=== PATIENT | male | born 1935 | race Caucasian/White ===

== ENCOUNTER → 2018-01-05 08:53 | Outpatient (CLI) | payer MEDICARE, OTHER, SELFPAY ==
[2018-01-05 09:16] LABS: Add Manual Diff / Slide Review NO; Basophils Percent Auto 0.7 % (0-2); Hematocrit 31.6 % (41-53); Lymphocytes Percent Auto 22.8 % (25-40); Mean Corpuscular HGB Conc 31.8 % (30-36); Mean Corpuscular Hemoglobin 24.9 PG (26-34); Mean Corpuscular Volume 78.2 fL (80-100); Monocytes Percent Auto 8.9 % (3-14); Neutrophils Absolute Auto 3200 /uL (3000-5900); Neutrophils Percent Auto 61.6 % (50-75); Platelet Count 258 X10^3/uL (150-400); Red Blood Cell Count 4.04 X10^6/uL (4.5-5.9); Red Cell Distribution Width 19.7 % (11.6-14.8); White Blood Cell Count 5.1 X10^3/uL (4.5-11.0)
== END ==
PROVIDERS: PCP Family Medicine; Visit Provider Family Medicine
DX: D64.9 Anemia, unspecified (principal)
CPT/HCPCS: 36415; 85025

== ENCOUNTER → 2018-01-16 08:02 | Outpatient (CLI) | payer MEDICARE, OTHER, SELFPAY ==
--- NOTE | 2018-01-16 | DI.US.S_ITS ---
PROCEDURE: US ARTERIAL DUPLEX LE RT INDICATIONS: DECREASED CIRCULATION/COLD RIGHT LOWER EXTREMITY TECHNIQUE: Color and pulse Doppler interrogation was performed of the right lower extremity arterial system, with image documentation. COMPARISON: None. FINDINGS: Common femoral artery: 147 cm/sec, with triphasic flow. Deep femoral artery: 75 cm/sec, with biphasic flow. Proximal superficial femoral artery: 109 cm/sec, with biphasic flow. Mid superficial femoral artery: 154 cm/sec, with biphasic flow. Distal superficial femoral artery: 160 cm/sec, with biphasic flow. Popliteal artery: 99 cm/sec, with biphasic flow. Posterior tibial artery: 75 cm/sec, with biphasic flow. Anterior tibial artery/dorsalis pedis: 56 cm/sec, with biphasic flow. Hess-scale imaging description: Scattered atheromatous plaque is present in the right lower extremity arteries. No hemodynamically significant stenosis. IMPRESSION: No hemodynamically significant stenosis of the right lower extremity arteries. Dictated by: Carmen Burns M.D. on 01/16/2018 at 11:14 Approved by: Carmen Burns M.D. on 01/16/2018 at 11:16
== END ==
PROVIDERS: Family Provider Family Medicine; PCP Family Medicine; Visit Provider Family Medicine
DX: I99.9 Unspecified disorder of circulatory system (principal)
CPT/HCPCS: 93926

== ENCOUNTER 2018-05-24 09:25 | Day surgery (SDC) | payer MEDICARE, OTHER, SELFPAY ==
--- NOTE | 2018-05-24 07:30 | PM.PREOP ---
Pre-operative Note Interval Note Pre-op Check: Yes History & Physical Reviewed by Physician Changes: No
[2018-05-24] MEDS: PROPARACAINE 0.5% OPHTH SOL 2 DROPS EYE-OP (09:50)
[2018-05-24 09:52] VITALS: BP 175/93; PULSE 60; RESP 16; TEMP 36.6; O2SAT 97; BMI 29.4
[2018-05-24] MEDS: CATARACT EYE COMPOUND (10 DROPS/SYRINGE) 3 DROPS EYE-OP (09:55)
--- NOTE | 2018-05-24 10:39 | SUR.OPER ---
Supine on eye stretcher, head on extension cradle secured with tape. Arms tucked at sides with blanket. Pillow under knees.
[2018-05-24] MEDS: PHENYLEPHRINE/LIDOCAINE VIAL (OR) 0.2 ML EYE-OP (10:41)
[2018-05-24] MEDS: MOXIFLOXACIN OPHTH DROPS 3 ML BOTTLE 2 DROPS INJ (10:42)
[2018-05-24] MEDS: TRIAMCINOLONE 50 MG/5 ML VIAL INJ (10:42)
[2018-05-24] MEDS: CHONDROIDTIN/SOD HYALURONATE 1.05 ML SYRINGE INTRAOCULA (10:43)
[2018-05-24] MEDS: BALANCED SALT IRRIG SOLN NO.2 15 ML IRRIG.SOLN IRR (10:43)
[2018-05-24] MEDS: CARBACHOL 1.5 ML VIAL INJ (10:44)
[2018-05-24] MEDS: HYALURONATE SODIUM 10 MG/ML SYRINGE INJ (10:44)
[2018-05-24] MEDS: OFLOXACIN 0.3% OPHTH 5 ML 2 DROPS EYE-LEFT (10:45)
[2018-05-24] MEDS: TRYPAN BLUE 0.5 ML SYRINGE INJ (10:45)
[2018-05-24] MEDS: ERYTHROMYCIN OPHTH 1 GM OINT 1 APPLIC EYE-LEFT (10:47)
[2018-05-24] MEDS: LIDOCAINE 1% W/EPI INJ 20 ML INJ (10:48)
[2018-05-24] MEDS: LIDOCAINE 2% 4 ML, BUPIVACAINE 0.5% (PF) 4 ML, HYALURONIDASE 150 UNIT INJ (10:49)
[2018-05-24] MEDS: BALANCED SALT IRRIG SOLN NO.2 500 ML, EPINEPHrine 1 MG IRR (10:51)
[2018-05-24 11:15] VITALS: BP 175/60; PULSE 53; RESP 16; TEMP 36.3; O2SAT 97
--- NOTE | 2018-05-24 16:06 | P.OP_ITS ---
Operative Date/Time/Diagnoses Date of procedure: 05/24/18 Time of procedure: 10:45 Procedure & Clinicians Procedure: Date of service: May 24, 2018 Preoperative diagnoses:1. 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 Floppy iris syndrome with tamsulosin use.3. Aortic heart valve on anticoagulation with INR 1.4 today. 4. On Lovenox bridging5. Diabetes without retinopathy. 6. Macular degeneration. Postoperative diagnoses:1. Cataract complex surgery with use of capsular dye and Malyugin ring. Procedure: Phacoemulsification with posterior chamber intraocular lens implant.Surgeon: NATE Magdalenoomplications: None. Specimen: NoneImplant: ZCBOO +21.0Blood loss: None .Anesthesia: Retrobulbar with monitored standby.Anesthesiologist: Adam Mares M.D.Description of procedure: Patient is a 83 year old male with decreased vision due to cataract which is affecting activities of daily living. He wants surgery to improve vision.He has taken to the operating room and given IV sedation. A retrobulbar block insert consisting of 6 cc of 2% xylocaine without epinephrine mixed half and half with 0.5% Marcaine with 1 cc of hyaluronidase added is placed between the medial and lateral 1/3 of the inferior orbital rim. Lid akinesia is obtain with 1% xylocaine with epinephrine infiltrated along the lid margin. The eye is manually massaged for 30 sec, prepped using Betadine solution, and draped in the usual sterile fashion.Temporal approach was made, a 1 mm side-port incision was made at the 12 oclock meridian. Phenylephrine 1.5% mixed with 1% xylocaine 0.2 cc was placed into the anterior chamber. An air bubble was placed and Visudyne dye was used to capsular visibility. Viscoat followed by Musa was then placed. A 2.6 mm clear incision with a 2.6 mm blade was placed at the 3 oclock meridian. A 7.0 mm Malyugin ring was inspected and placed into the anterior chamber and then sequentially hooked under the iris. This allowed contain min of floppy iris as well as improve visibility. A 360 degree capsulorrhexis style capsulotomy was then performed with a cystitome needle on a Healon. Hydrodelineation and hydrodissection were performed. The phacoemulsification unit is introduced, and sculpting notice used to groove the central lens. It is then removed in chopping mode. Epi nucleus is removed with epinuclear mode and irrigation aspiration was used to remove the peripheral cortex. The posterior capsule is polished. The intraocular lens is selected, inspected, power confirmed, and placed in the posterior chamber. The Malyugin ring was then disinserted and removed from the eye in its original folder. The pupil was constricted. The wound was stromally hydrated and tested for leaks, there was none and was left sutureless. Vigamox 0.1 cc was placed into the anterior chamber. Kenalog 0.2 cc was placed in the superior subconjunctival space. A drop of antibiotic and was placed and the eye was patched and shielded. The patient was stable and returned to the recovery room in excellent condition.Dictated by: Domenico Magdaleno to: [facility] Same procedure as scheduled: Yes
== END 2018-05-24 11:30 | disposition home or self-care (01) ==
LOC: OR 09:26
PROVIDERS: Family Provider Family Medicine; PCP Family Medicine; Visit Provider Ophthalmology
PROC: (CPT 66982; principal; 2018-05-24 10:45)
DX: H25.12 Age-related nuclear cataract, left eye (principal); H21.81 Floppy iris syndrome; H26.9 Unspecified cataract; E11.9 Type 2 diabetes mellitus without complications; H35.30 Unspecified macular degeneration; Z79.01 Long term (current) use of anticoagulants
CPT/HCPCS: 66982; J0171; J2704; J3301; J3470

== ENCOUNTER 2018-06-07 07:33 | Day surgery (SDC) | payer MEDICARE, OTHER, SELFPAY ==
--- NOTE | 2018-06-02 16:55 | PM.PREOP ---
Pre-operative Note Interval Note Pre-op Check: Yes History & Physical Reviewed by Physician Changes: No
[2018-06-07 07:56] VITALS: BP 182/62; PULSE 57; RESP 16; TEMP 36.1; O2SAT 98; BMI 29.4
[2018-06-07] MEDS: PROPARACAINE 0.5% OPHTH SOL 2 DROPS EYE-OP (08:05)
[2018-06-07] MEDS: CATARACT EYE COMPOUND (10 DROPS/SYRINGE) 3 DROPS EYE-OP (08:08)
[2018-06-07] MEDS: ERYTHROMYCIN OPHTH 1 GM OINT 1 APPLIC EYE-RIGHT (09:05)
[2018-06-07] MEDS: MOXIFLOXACIN OPHTH DROPS 3 ML BOTTLE 2 DROPS INJ (09:06)
[2018-06-07] MEDS: CHONDROIDTIN/SOD HYALURONATE 1.05 ML SYRINGE INTRAOCULA (09:07)
[2018-06-07] MEDS: BALANCED SALT IRRIG SOLN NO.2 15 ML IRRIG.SOLN IRR (09:07)
[2018-06-07] MEDS: HYALURONATE SODIUM 10 MG/ML SYRINGE INJ (09:08)
[2018-06-07] MEDS: BALANCED SALT IRRIG SOLN NO.2 500 ML, EPINEPHrine 1 MG IRR (09:09)
[2018-06-07] MEDS: PHENYLEPHRINE/LIDOCAINE VIAL (OR) 0.2 ML EYE-OP (09:09)
[2018-06-07] MEDS: CARBACHOL 1.5 ML VIAL INJ ×2 (09:10→10:06)
[2018-06-07] MEDS: OFLOXACIN 0.3% OPHTH 5 ML 2 DROPS EYE-RIGHT (09:11)
[2018-06-07] MEDS: TRIAMCINOLONE 50 MG/5 ML VIAL INJ (09:13)
[2018-06-07] MEDS: LIDOCAINE 1% W/EPI INJ 20 ML INJ (09:21)
[2018-06-07] MEDS: LIDOCAINE 2% 4 ML, BUPIVACAINE 0.5% (PF) 4 ML, HYALURONIDASE 150 UNIT INJ (09:24)
[2018-06-07] MEDS: TRYPAN BLUE 0.5 ML SYRINGE INJ (09:26)
[2018-06-07 09:40] VITALS: BP 179/63; PULSE 45; RESP 20; TEMP 36.6; O2SAT 96
--- NOTE | 2018-06-07 11:55 | PM.OP.1 ---
Operative Date/Time/Diagnoses Date of procedure: 06/07/18 Time of procedure: 09:30 Procedure & Clinicians Procedure: Date of service: June 07, 2018 Preoperative diagnoses: 1. Complex advanced nuclear sclerotic and cortical Cataract with need for capsular dye and Malyugin ring 2. Floppy iris syndrome. 3. Aortic valve on anticoagulation. Postoperative diagnoses: 1. Cataract complex removed with capsular dye and Malyugin ring. Procedure: Phacoemulsification with posterior chamber intraocular lens implant Surgeon: Belen Devine MD Complications:none Specimen: None Implant:ZCBOO+21.0 Blood loss: None Anesthesia: Retrobulbar with monitored standby Anesthesiologist: Cole López M.D. Description of procedure: Patient is an 83 year old male with decreased vision due to cataract which is affecting activities of daily living. He wants surgery to improve vision. He has an aortic valve and his INR before surgery is 1.2. He is also using bridging Lovenox. He has taken to the operating room and given IV sedation. A retrobulbar block insert consisting of 6 cc of 2% xylocaine without epinephrine mixed half and half with 0.5% Marcaine with 1 cc of hyaluronidase added is placed between the medial and lateral 1/3 of the inferior orbital rim. Lid akinesia is obtain with 1% xylocaine with epinephrine infiltrated along the lid margin. The eye is manually massaged for 30 sec, prepped using Betadine solution, and draped in the usual sterile fashion. Temporal approach was made, a 1 mm side-port incision was made at the 7:30 position. Phenylephrine 1.5% mixed with 1% xylocaine 0.2 cc was placed into the anterior chamber. An air bubble was placed followed by Visudyne capsular dye.Viscoat followed by Healon was then placed. A 2.6 mm clear incision with a 2.6 mm blade was placed at the 170 degree meridian. A 7.0 mm Malygin ring was inspected and placed into the anterior chamber. It was then sequentially hooked on all 4 quadrants of the iris. There was a narrow anterior chamber. A 360 degree capsulorrhexis style capsulotomy was then performed with a cystitome needle on a Healon. Hydrodelineation and hydrodissection were performed. The phacoemulsification unit is introduced, and sculpting notice used to groove the central lens. It is then removed in chopping mode. Epi nucleus is removed with epinuclear mode and irrigation aspiration was used to remove the peripheral cortex. The posterior capsule is polished. The intraocular lens is selected, inspected, power confirmed, and placed in the posterior chamber. The Malygin ring was then disinserted and removed from the eye using extra viscoelastic. The pupil was constricted. The wound was stromally hydrated and tested for leaks, there was none and was left sutureless. Vigamox 0.1 cc was placed into the anterior chamber. Kenalog 0.2 cc was placed in the superior subconjunctival space. A drop of antibiotic and was placed and the eye was patched and shielded. The patient was stable and returned to the recovery room in excellent condition. Dictated by: Belen Devine MD Copy to: [facility] Same procedure as scheduled: Yes
== END 2018-06-07 09:55 | disposition home or self-care (01) ==
LOC: OR 07:34
PROVIDERS: PCP Family Medicine; Visit Provider Ophthalmology
PROC: (CPT 66982; principal; 2018-06-07 08:45)
DX: H25.11 Age-related nuclear cataract, right eye (principal); H21.81 Floppy iris syndrome; Z79.01 Long term (current) use of anticoagulants
CPT/HCPCS: 66982; J0171; J2250; J2704; J3010; J3301; J3470

== ENCOUNTER → 2018-08-01 10:10 | Outpatient (CLI) | payer MEDICARE, OTHER, SELFPAY ==
[2018-08-01 10:37] LABS: Add Manual Diff / Slide Review NO; Basophils Percent Auto 0.6 % (0-2); Eosinophils Percent Auto 5.2 % (2-4); Hematocrit 44.5 % (41-53); Hemoglobin 15.1 g/dL (13.5-17.5); Lymphocytes Percent Auto 21.9 % (25-40); Mean Corpuscular HGB Conc 33.8 % (30-36); Mean Corpuscular Hemoglobin 32.5 PG (26-34); Monocytes Percent Auto 6.5 % (3-14); Neutrophils Absolute Auto 6000 /uL (1500-7000); Neutrophils Percent Auto 65.8 % (50-75); Platelet Count 253 X10^3/uL (150-400); Red Blood Cell Count 4.64 X10^6/uL (4.5-5.9); White Blood Cell Count 9.1 X10^3/uL (4.5-11.0)
== END ==
PROVIDERS: PCP Family Medicine; Visit Provider Family Medicine
DX: D64.9 Anemia, unspecified (principal)
CPT/HCPCS: 36415; 85025

== ENCOUNTER → 2019-02-06 06:43 | Outpatient (CLI) | payer MEDICARE, OTHER, SELFPAY ==
--- NOTE | 2019-02-06 | DI.MRI.S_ITS ---
PROCEDURE: MR LUMBAR SPINE WO/W CON INDICATIONS: LOW BACK PAIN TECHNIQUE: Noncontrast sagittal T1 spin echo and T2 fast spin echo, sagittal STIR, axial T1 and T2 fast spin echo through the lumbar spine. In cases with scoliosis, additional coronal T2 fast spin echo may be performed. After the administration of contrast, sagittal and axial T1 spin echo with fat saturation through the lumbar spine. COMPARISON: [facility], RG, XR L-SPINE OUTSIDE FILMS, 04/11/2007, 12:37. [facility], RG, XR CXR 2 VIEW, 02/06/2002, 10:37. [facility], RG, XR ABDOMEN ACUTE SERIES, 08/15/2003, 10:56. [facility], RG, XR CXR 2 VIEW, 05/18/2003, 10:36. [facility], CR, CHEST 2 VIEW, 06/09/2011, 9:52. [facility], CR, CHEST 2 VIEW, 07/21/2017, 12:03. [facility], CT, IVP (ABD & PEL WWO CONTRAST), 01/03/2017, 11:15. [facility], MR, LUMBAR SPINE W/O CONTRAST, 05/03/2007, 14:29. [facility], CR, L-SPINE MINIMUM 4 VIEWS, 07/11/2007, 0:00. [facility], MR, L-SPINE W&WO CONTRAST, 04/17/2013, 7:15. FINDINGS: Image quality: Excellent. Transitional anatomy present. The numbering nomenclature used the previous MRI lumbar spine reports is used in this report. There are vestigial ribs at L1. Alignment and curvature: There is moderate S-shaped scoliosis. Marrow: Degenerative endplate signal changes throughout the lumbar spine. No acute vertebral body compression fractures. There is discectomy and posterior fusion at L3-L4. Metallic artifact partially obscure adjacent structures some sequences. No suspicious marrow enhancement. Spinal cord: Conus medullaris terminates at the L1-L2 level. Visualized spinal cord demonstrates normal signal, without suspicious enhancement. Paraspinous soft tissues: No paravertebral masses or abnormal enhancement. A 5 cm left renal cyst is noted. L1-L2: Xkwt-oh-affyicec loss of disc height and disc desiccation. There is diffuse posterior disc bulge. Mild bilateral facet arthropathy and hypertrophy of ligamentum flavum. The central canal is patent. Moderate left and mild right foraminal stenosis. No definitive nerve root impingement. There is progression of disc and facet joint degeneration since the last exam. L2-L3: Moderate disc loss of height and disc desiccation. There is diffuse posterior disc bulge and disc osteophyte complex. Mild bilateral facet arthropathy and hypertrophy of ligamentum flavum. The central canal is moderately narrowed. Severe left and moderate right foraminal stenosis. Possible left definitive nerve root impingement. There is progression of disc and facet joint degeneration since the last exam. L3-L4: Surgically fused. The central canal is patent. Moderate left foraminal stenosis secondary to a left lateral osteophyte. No right foraminal stenosis. Possible left definitive nerve root impingement. L4-L5: Mild loss of disc height and disc desiccation. There is diffuse posterior disc bulge and disc osteophyte complex. Mild bilateral facet arthropathy. The central canal is patent. Mild to moderate bilateral foraminal stenosis. No definitive nerve root impingement. There is progression of disc and facet joint degeneration since the last exam. L5-S1: Preserved disc height and disc desiccation. There is diffuse posterior disc bulge and right posterior lateral disc osteophyte complex. Mild bilateral facet arthropathy. The central canal is patent. Moderate right and mild left foraminal stenosis. Possible right definitive nerve root impingement. There is progression of disc and facet joint degeneration since the last exam. IMPRESSION: 1. Possible transitional anatomy. Please confirm vertebral levels on radiographs prior to surgery or interventional procedures. 2. Multilevel degenerative and postsurgical changes in the lumbar spine as described. 3. Mild central canal stenosis L2-L3. 3. Multilevel foraminal stenosis as described, severe at L2-L3 on the left and moderate at L2-L3 on the right and L5-S1 on the right. Dictated by: Norm Rendon M.D. on 02/06/2019 at 11:07 Approved by: Norm Rendon M.D. on 02/06/2019 at 17:56
== END ==
PROVIDERS: PCP Family Medicine; Visit Provider Family Medicine
DX: M47.816 Spondylosis without myelopathy or radiculopathy, lumbar region (principal); M47.817 Spondylosis without myelopathy or radiculopathy, lumbosacral region; M48.061 Spinal stenosis, lumbar region without neurogenic claudication; Z98.1 Arthrodesis status; M54.5 Low back pain
CPT/HCPCS: 72158; A9579

== ENCOUNTER → 2019-02-14 14:34 | Outpatient (CLI) | payer MEDICARE, OTHER, SELFPAY ==
--- NOTE | 2019-02-14 14:36 | DI.RAD.S_ITS ---
PROCEDURE: XR LUMBAR SPINE 2-3V INDICATIONS: lumbar pain with right L5 radiculopathy TECHNIQUE: 3 views of the lumbar spine were acquired. COMPARISON: [facility], , L-SPINE MINIMUM 4 VIEWS, 07/11/2007, 0:00. FINDINGS: Bones: 5 [id number] vertebrae are present. There is dextroscoliotic bony alignment. Prior L 2-L3 transverse pedicle screw and vertical fixation natalie fixation has been performed No vertebral body compression fractures. No suspicious bony lesions. Soft tissues: Overlying bowel gas pattern is normal. No suspicious soft tissue calcifications. IMPRESSION: The degenerative disc disease and facet osteoarthritis pattern has progressed from 2006, but convex rightward scoliosis centered at L2 appears stable over time no fracture is found. Interval L2-L3 transverse pedicle screw placement and vertical fixation natalie placement bilaterally has been performed. The degree of degeneration present certainly would predispose to spinal and foraminal stenosis and focal nerve root impingement. Dictated by: Ashkan Schreiber M.D. on 02/14/2019 at 15:31 Approved by: Ashkan Schreiber M.D. on 02/14/2019 at 15:34
== END ==
PROVIDERS: PCP Family Medicine; Visit Provider Physical Medicine & Rehabilitation
DX: M47.27 Other spondylosis with radiculopathy, lumbosacral region (principal); M51.16 Intervertebral disc disorders with radiculopathy, lumbar region; M41.86 Other forms of scoliosis, lumbar region
CPT/HCPCS: 72100; 99214

== ENCOUNTER 2019-03-01 06:50 | Outpatient (CLI) | payer MEDICARE, OTHER, SELFPAY ==
[2019-03-01] VITALS (9 sets, daily range): BP systolic 121–155; BP diastolic 50–59; PULSE 52–63; RESP 16–18; TEMP 36.3; O2SAT 96–99
--- NOTE | 2019-03-01 06:52 | DI.RAD.S_ITS ---
PROCEDURE: PAIN L/S TRANSFORAMINAL INJECT INDICATIONS: RADICULOPATHY FINDINGS: Fluoroscopic spot filming was performed to verify placement of spinal needles at the L4-L5 level(s), as labeled on the films. Appropriate location(s) of the needle tip(s) was confirmed by injection of iodinated contrast. Dictated by: Shaun Bowman M.D. on 03/01/2019 at 9:22 Approved by: Shaun Bowman M.D. on 03/01/2019 at 9:23
[2019-03-01] MEDS: MIDAZOLAM 5 MG/5 ML VIAL IV (07:51)
[2019-03-01] MEDS: fentaNYL 100 MCG/2 ML INJ 50 MCG IV (07:51)
[2019-03-01] MEDS: DEXAMETHASONE 10 MG/ML VIAL 20 MG INJ (08:00)
[2019-03-01] MEDS: BUPIVACAINE 0.25% (PF) VIAL 2 ML INJ (08:00)
[2019-03-01] MEDS: IOPAMIDOL 15 ML VIAL 3 ML INJ (08:00)
[2019-03-01] MEDS: BETAMETHASONE 30 MG/5 ML MDV 6 MG INJ (08:00)
--- NOTE | 2019-03-01 08:12 | PC.NURSE ---
pt tolerated procedure well. Pt able to get off the table with standby assist. Transferred pt to pre procedure room via wheelchair for continued monitoring with Newton GONZALEZ.
--- NOTE | 2019-03-01 08:20 | P.PCN_ITS ---
Procedures Date/Time Date of procedure: 03/01/19 Time of procedure: 08:19 General Procedure description: PREOP DIAGNOSIS 1. FORMAINAL STENOSIS WITH LE SYMPTOMS POST OP DIAGNOSIS 1. FORMAINAL STENOSIS WITH LE SYMPTOMS PROCEDURES 1. FLUOROSCOPICALLY GUIDED CONTRAST CONTROLLED TRANSFORAMINAL EPIDURAL STEROID INJECTION - RIGHT L4/5 TFESI PHYSICIAN: Stanton Castellon DO INDICATIONS: Ivan is referred by Dr. Angel for treatment of Foraminal Stenosis with Right LE Symptoms FINDINGS Foraminal Nerve Root Compression secondary to disc disease and facet hypertrophy DESCRIPTION OF PROCEDURE: Following review of allergy and review of potential side effects and complications, including, but not necessarily limited to, infection, allergic reaction, local tissue breakdown, stroke, temporary or permanent nerve injury, paralysis, and possible , the patient indicated that the patient understood and agreed to proceed. An informed consent document was signed by the patient, witnessed by a nurse, and placed in the patient's chart. Additionally, other treatment options including medications, modalities, and physical therapy were reviewed with the patient. After review of previous anaesthesic history and IV conscious sedation the patient was deemed safe to proceed with todays procedure with IV conscious sedation as ASA class II designation. Safety time-out was performed to confirm patient ID, procedure to be performed and site of procedure. IV sedation was accomplished with a combination of 2mg of Versed and 50 micro g of fentanyl was administered by the RN after DO order, titrated to patient comfort during the course of the procedure while the patient remained responsive to all verbal commands In the prone position following sterile prep and drape of the lumbar region, the Right L4/5 posterior neuroforamen was identified fluoroscopically. The skin was anesthetized via a 25-gauge 1.5-inch needle with 1% lidocaine solution. At this point, a 25-gauge 3.5-inch spinal needle was atraumatically introduced and a dvanced under fluoroscopic guidance through the posterior Right L4/5 neuroforamen to approximately the anterior aspect of the canal. Depth was confirmed on lateral view. Following negative aspiration, injection of approximately 1.5 cc of Isovue 200 under live fluoroscopy in the AP view confirmed excellent flow along the nerve root, into the epidural space without vascular or intrathecal uptake observed Radiological data, including multiple fluoroscopic views of the lumbosacral spine, reveal a spinal needle at the right L4/5 posterior neuroforamen. Subsequent views show flow of contrast material flowing superiorly and inferiorly along the nerve root confirming epidural flow. Subsequently, a test dose of 1.5 cc of 1% lidocaine solution was administered and patient was observed for two minutes for signs or symptoms of complications, including abdominal pain, shortness of breath, bilateral upper or lower extremity weakness, nausea and vomiting, prior to steroid injection. At this point, a total of 3cc or 20mg of dexamethasone and 6 mg of betamethasone was injected without incident. The procedure tolerated the procedure well without signs or symptoms of complications prior to transfer to the recovery area continued monitoring without incident.The patient was then transferred to the recovery area where they were observed for an appropriate time after the injection. The patient reported a VAS score of 7 prior to the procedure and a post- procedure VAS of 0. Total Fluoroscopy Time: 20.9 seconds Total Conscious Sedation Time: 24min POST OP INSTRUCTIONS The patient was provided a Pain Log to continue to record their response to the target-specific procedure prior to follow-up visit with their referring physician. Additionally, specific post-injection care instructions and a contact number to our office were provided if concerns arise regarding possible complications associated with the procedure are suspected. Stanton Castellon, Complications: none
--- NOTE | 2019-03-01 08:21 | PC.NURSE ---
Patient returns to treatment area alert and awake. Able to transfer with staff standby assist
--- NOTE | 2019-03-01 16:05 | PC.NURSE ---
Return call made for pt with some concerns about sx's from today. No one was available so I left message on message machine and will attempt to follow up tomorrow.
== END 2019-03-01 08:32 ==
LOC: RAD 06:52
PROVIDERS: PCP Family Medicine; Visit Provider Physical Medicine & Rehabilitation
DX: M48.061 Spinal stenosis, lumbar region without neurogenic claudication (principal); M51.16 Intervertebral disc disorders with radiculopathy, lumbar region
CPT/HCPCS: 64483; 99152; J0702; J1100; J2250; J3010

== ENCOUNTER 2019-04-23 08:18 | Day surgery (SDC) | payer MEDICARE, OTHER, SELFPAY ==
[2019-04-12 14:18] VITALS: BMI 28.7
[2019-04-23] VITALS (7 sets, daily range): BP systolic 94–157; BP diastolic 60–73; PULSE 50–61; RESP 13–16; TEMP 36.2–36.4; O2SAT 95–98; BMI 28.1
--- NOTE | 2019-04-23 | PATH_ITS ---
[facility] Accession Number: [id number] . 01 Material submitted: . AXILLARY - RIGHT AXILLARY TISSUE . 01 Diagnosis: Right Axillary Tissue/Lymph Nodes, Excision: Multiple benign lymph nodes with tattoo pigment, reactive sinus histiocytosis and extensive fatty changes. Negative for granulomatous inflammation. Negative for carcinoma or hematolymphoid malignancy. V 04/25/2019 1708 Local . 01 Comment: Corresponding flow cytometry (see flow cytometry report [id number] for details) did not reveal an abnormal B or T cell population. . 01 Electronically signed: . Pamela Judd MD, Pathologist NPI- [id number] . 01 Gross description: . Received in formalin, labeled right axillary mass, right axillary tissue, is a piece of saunders-yellow rubbery adipose tissue (10.5 x 7.0 x 2.3 cm) containing multiple solid firm masses/possible lymph nodes (ranging 0.5 x 0.5 x 0.3 cm-4.5 x 4.2 x 0.8 cm). Section code: (A1) multiple intact nodules/possible lymph nodes; (A2-A4) one bisected nodule/possible lymph node in each cassette; (A5-A6) one nodule/possible lymph node, serially sectioned; (A7-A8) one nodule/possible lymph node, bisected; (A9-A17) possible mass/largest piece, serially sectioned, one bisected slice in each cassette. Note: Also received are two containers with RPMI with lymph node tissue, which were sent to Flow Cytometry for analysis. ([id number]) /MRV 04/24/2019 1030 Local . 01 Pathologist provided ICD-10: R59.0 . 01 CPT . 463202 Performed at: 01 [facility] [address] [address], [place], [place] [id number] MD Braxton Kellogg MD Phone: [phone]
[2019-04-23] MEDS: LACTATED RINGERS 1,000 ML 100 ML IV (09:20)
--- NOTE | 2019-04-23 09:46 | PM.HP.1 ---
History of Present Illness History of Present Illness Date Patient Seen: 04/23/19 Time Patient Seen: 09:39 Chief complaint: [id number] Narrative: Patient is gentleman with right axillary breast tissue here for excision. It has become large enough that it is quite bothersome to him. Patient History Medical History Cellulitis of left hand (Acute) Chronic anticoagulation (Chronic) Heart murmur (Acute) HLD (hyperlipidemia) (Acute) HTN (hypertension) (Acute) Irregular heartbeat (Acute) Myocardial infarct (Acute) Sleep apnea in adult (Acute) Sleep apnea with use of continuous positive airway pressure (CPAP) (Acute) Surgical History History of arthroplasty of right knee (Acute) History of back surgery (Resolved ~2009) History of open heart surgery (Resolved) History of repair of left rotator cuff (Acute) History of repair of right rotator cuff (Acute) Hx of appendectomy (Acute) Hx of bilateral cataract extraction (Acute ~2017) Hx of cholecystectomy (Resolved) Hx of umbilical hernia repair (Acute) Status post epidural steroid injection (Acute 03/01/19) Family History Mother Heart disease Diabetes mellitus Sister Cancer Brother Cancer Social History marital status: household members: spouse occupational status: previously employed Smoking Status: Former smoker alcohol intake: never substance use type: does not use Family & Social History Family History Mother Heart disease Diabetes mellitus Sister Cancer Brother Cancer Social History: household members spouse Tobacco & Substance use: Tobacco type cigarettes Smoking Status Former smoker alcohol intake never Substance Use Type does not use Meds Home Medications and Allergies Home Medications Medication Instructions Recorded Confirmed Type Aero Chamber 1 unit INHALATION PRN PRN #0 07/10/17 04/20/19 History Ocuvite Lutein and Zeaxanthin 1 cap PO QDAY #0 07/10/17 04/23/19 History nitroglycerin [Nitrostat] 0.4 mg SUBLINGUAL PRN PRN #0 07/10/17 04/12/19 History rosuvastatin [Crestor] 40 mg PO QDAY #0 07/10/17 04/23/19 History telmisartan [Micardis] 40 mg PO QDAY #0 07/10/17 04/23/19 History warfarin [Coumadin] 5 mg PO 4XW #0 07/10/17 04/23/19 History metformin 250 mg PO DAILY 05/24/18 04/23/19 History Resmed Airsense 10 CPAP #1 ea 12/11/18 04/23/19 History brimonidine-timolol 0.2 %-0.5 % 1 drp EYE-BOTH BID ml 02/14/19 04/23/19 History eye drops hydrochlorothiazide 25 mg tablet 25 mg PO DAILY 02/14/19 04/23/19 History hydrocodone 5 mg-acetaminophen 325 1 tab PO Q4H PRN 02/14/19 04/23/19 History mg tablet albuterol sulfate [Proventil HFA] 2 puff INHALATION Q4H PRN 04/20/19 04/23/19 History lidocaine [Lidoderm] 1 patch TOPICAL DAILY 04/20/19 04/23/19 History omeprazole 20 mg PO BID 04/20/19 04/23/19 History tamsulosin [Flomax] 0.4 mg PO DAILY 04/20/19 04/23/19 History warfarin 4 mg PO 3XW 04/20/19 04/23/19 History Allergies Allergy/AdvReac Type Severity Reaction Status Date / Time sulfamethoxazole Allergy Severe critical Verified 03/28/19 13:28 [From Bactrim] trimethoprim [From Bactrim] Allergy Severe critical Verified 03/28/19 13:28 Penicillins [PENICILLINS] Allergy Intermediate RASH,HIVES Verified 03/28/19 13:28 Sulfa (Sulfonamide Allergy Intermediate RASH, HIVES Verified 03/28/19 13:28 Antibiotics) [SULFA (SULFONAMIDE ANTIBIOTICS)] Review of Systems Review of Systems Narrative: Patient denies seizures or blackouts. He is not having any chest pain at this time. Just got over cold after traveling. No black or bloody bowel movements. Exam Vital Signs (past 8 hours): - 04/23/19 08:52 Temperature 97.1 F L Pulse Rate 54 L Respiratory Rate 16 Blood Pressure 157/73 H Pulse Oximetry 98 Oxygen Delivery Method Room Air Narrative Exam Narrative: Cooperative no apparent distress. Eyes are nonicteric. Lungs are clear to auscultation without rales or rhonchi. Heart regular rate and rhythm. Loud metallic click heard well throughout the precordium. No bruit in the neck. Abdomen is protuberant and soft. Patient has a large right axillary mass with the consistency of fat consistent with ectopic breast tissue. No palpable nodes appreciated in the axilla. No such mass on the left. Assessment & Plan Assessment & Plan narrative: Ectopic axillary breast tissue. Plan to excise. I have discussed the procedure with the patient including risks of bleeding infection and nerve injury. He appears to understand and wishes to proceed.
--- NOTE | 2019-04-23 09:49 | PM.PREOP ---
Pre-operative Note Interval Note History & Physical reviewed/Exam performed by Physician: Yes Changes to H&P: No
[2019-04-23] MEDS: CLINDAMYCIN 900 MG/50 ML PIGGYBACK 50 MG IV (10:06)
--- NOTE | 2019-04-23 10:31 | SUR.OPER ---
Supine on padded OR bed, head on pillow, arms secured on padded arm boards at <90 degrees abduction, legs uncrossed, safety belt at thigh, tape over blanket over lower legs.
[2019-04-23] MEDS: BUPIVACAINE 0.5% (PF) VIAL 30 ML INJ (10:35)
--- NOTE | 2019-04-23 11:39 | PM.OP.1 ---
Operative Date/Time/Diagnoses Date of procedure: 04/23/19 Time of procedure: 11:39 Pre-op diagnosis: Right axillary mass probable ectopic breast tissue Post-op diagnosis: other (Right axillary mass probably fatty tissue with kia tissue. The may also be some ectopic breast tissue as well.) Procedure & Clinicians Procedure: Deep axillary node dissection. Excision of mass which may in part be axillary breast tissue. Same procedure as scheduled: Yes Indications: Symptomatic mass in the right axilla Surgeon: Sarabjit Giraldo Click Yes if Unassisted: Yes Anesthesia Type: General Operative Notes Findings: Enlarged nodes with dark material within them I suspect is ink from tattoos. Some nodes are quite large but appear mostly to be fatty replaced. Tissue sent for possible flow cytometry. Closure Type: primary Specimen(s): other (Axillary tissue and subcu mass) Prosthetic devices, grafts, tissues, transplants, or devices: None Applied: drain(s) (Nineteen Maltese Pasquale drain) Estimated Blood Loss (mL): 15 Blood products transfused: none Procedure in detail: Patient was placed supine on the operating room table and underwent general LMA anesthesia. He was prepped and draped in usual fashion. Transverse incision was made across the axilla overlying the palpable mass. It was carried down the subcu. There appeared to be a fatty ill defined mass in the subcu but I a.m. to heard into the axilla proper and identified a large fatty mass there as well as numerous lymph nodes. I dissected the mass and lymph nodes from surrounding structures principally using cautery. I attempted to preserve the nervous intervention to the inner arm. The tissue was removed in a portion of a black lymph node that appeared it in part to be fatty replaced was placed in material for flow cytometry should this be a lymphoma. A 19 Maltese Pasquale drain was placed in the axilla and brought out through a separate stab incision. The axilla was closed with interrupted 3 0 Vicryl. The subcu was closed with interrupted 3 0 Vicryl and skin was closed running 4 0 Vicryl subcuticular stitch and Steri-Strips. Patient was awakened extubated taken recovery area in good condition Complications: none Post-operative Condition: stable Disposition: PACU
== END 2019-04-23 12:30 | disposition home or self-care (01) ==
PROVIDERS: PCP Family Medicine; Visit Provider Specialist
PROC: (CPT 38525; principal; 2019-04-23 09:45)
DX: R59.0 Localized enlarged lymph nodes (principal); Q83.8 Other congenital malformations of breast; G47.33 Obstructive sleep apnea (adult) (pediatric)
CPT/HCPCS: 38525; J2405; J2704; J3010

== ENCOUNTER → 2019-06-04 16:53 | Outpatient (CLI) | payer MEDICARE, OTHER, SELFPAY ==
[2019-06-04 18:24] LABS: D Dimer 247 ng/mL (<230)
== END ==
PROVIDERS: PCP Family Medicine; Visit Provider Student in an Organized Health Care Education/Training Program
DX: R22.31 Localized swelling, mass and lump, right upper limb (principal)
CPT/HCPCS: 36415; 85379

== ENCOUNTER → 2019-06-05 08:09 | Outpatient (CLI) | payer MEDICARE, OTHER, SELFPAY ==
--- NOTE | 2019-06-05 | DI.US.S_ITS ---
PROCEDURE: US PERIPH VENOUS UP EXTREM RT INDICATIONS: SWELLING OF FOREARM TECHNIQUE: Real-time imaging, as well as color and pulse Doppler interrogation, was performed of the right upper extremity deep veins from the inferior neck to the antecubital fossa. COMPARISON: None. FINDINGS: The internal jugular vein, visualized portions of the subclavian vein, axillary, and brachial veins are free of intraluminal thrombus. Where physically possible, the veins are normally compressible. Color and pulse Doppler demonstrate normal intraluminal flow, with expected phasicity and pulsatility. Additional scanning of the cephalic and basilic veins of the superficial system demonstrate normal compressibility, without thrombus. IMPRESSION: No right upper extremity venous thrombosis identified. Dictated by: Jose FISHER Interpreted: Alva Sanchez MD on 06/05/2019 at 13:16 Approved by: Alva Sanchez M.D. on 06/05/2019 at 17:36
== END ==
PROVIDERS: PCP Family Medicine; Visit Provider Student in an Organized Health Care Education/Training Program
DX: R22.31 Localized swelling, mass and lump, right upper limb (principal)
CPT/HCPCS: 93971

== ENCOUNTER → 2019-08-10 11:03 | Outpatient (CLI) | payer MEDICARE, OTHER, SELFPAY ==
[2019-08-10 11:25] LABS: D Dimer < 200 ng/mL (<230)
== END ==
PROVIDERS: PCP Family Medicine; Visit Provider Student in an Organized Health Care Education/Training Program
DX: R22.31 Localized swelling, mass and lump, right upper limb (principal); M47.27 Other spondylosis with radiculopathy, lumbosacral region; M47.26 Other spondylosis with radiculopathy, lumbar region; E11.9 Type 2 diabetes mellitus without complications; I73.9 Peripheral vascular disease, unspecified; I25.10 Atherosclerotic heart disease of native coronary artery without angina pectoris; K21.9 Gastro-esophageal reflux disease without esophagitis; Z95.2 Presence of prosthetic heart valve; Z79.01 Long term (current) use of anticoagulants
CPT/HCPCS: 85379; 99214

== ENCOUNTER → 2019-09-17 10:03 | Outpatient (CLI) | payer MEDICARE, OTHER, SELFPAY ==
--- NOTE | 2019-09-17 | DI.RAD.S_ITS ---
PROCEDURE: XR CHEST 2V INDICATIONS: ONGOING COUGH TECHNIQUE: 2 views of the chest were acquired. COMPARISON: [facility], [place], XR LUMBAR SPINE 2-3V, 02/14/2019, 14:37. [facility], [place], CHEST 2 VIEW, 07/21/2017, 12:03. FINDINGS: Surgical changes and devices: Aortic valve replacement. Post CABG. Lungs and pleura: Lungs are clear. No pleural effusions or pneumothorax. Mediastinum: Mediastinal contours are normal. Heart size is normal. Bones and chest wall: No suspicious bony abnormalities. Lumbar spine hardware partially visualized. Mild height loss at T11, unchanged. Soft tissues appear unremarkable. IMPRESSION: No acute cardiopulmonary abnormality. Emphysematous change. Dictated by: Venkat Reyez M.D. on 09/17/2019 at 10:35 Approved by: Venkat Reyez M.D. on 09/17/2019 at 10:38
== END ==
PROVIDERS: PCP Family Medicine; Referring Provider Family Medicine; Visit Provider Family Medicine
DX: R05 Cough (principal)
CPT/HCPCS: 71046

== ENCOUNTER → 2020-02-02 11:19 | Outpatient (CLI) | payer MEDICARE, OTHER, SELFPAY ==
[2020-02-03 01:06] LABS: COVID19 Sendout Not Detected (Not Detect)
== END ==
PROVIDERS: PCP Family Medicine; Visit Provider Physician Assistant
DX: Z01.812 Encounter for preprocedural laboratory examination (principal)
CPT/HCPCS: 87635

== ENCOUNTER 2020-02-05 08:10 | Outpatient (CLI) | payer MEDICARE, OTHER, SELFPAY ==
[2020-02-05] VITALS (9 sets, daily range): BP systolic 97–149; BP diastolic 49–96; PULSE 45–70; RESP 16; TEMP 36.7; O2SAT 95–100
--- NOTE | 2020-02-05 08:11 | DI.RAD.S_ITS ---
PROCEDURE: PAIN L/S TRANSFORAMINAL INJECT INDICATIONS: SPONDYLOSIS FINDINGS: Fluoroscopic spot filming was performed to verify placement of spinal needles at the L4-L5 level(s), as labeled on the films. Appropriate location(s) of the needle tip(s) was confirmed by injection of iodinated contrast. Dictated by: Shaun Bowman M.D. on 02/05/2020 at 11:47 Approved by: Shaun Bowman M.D. on 02/05/2020 at 11:47
[2020-02-05] MEDS: MIDAZOLAM 5 MG/5 ML VIAL IV (09:28)
[2020-02-05] MEDS: fentaNYL 100 MCG/2 ML INJ 50 MCG IV (09:28)
[2020-02-05] MEDS: BUPIVACAINE 0.25% (PF) VIAL 2 ML INJ (09:42)
[2020-02-05] MEDS: IOPAMIDOL 15 ML VIAL 3 ML INJ (09:42)
--- NOTE | 2020-02-05 09:42 | PC.NURSE ---
NOTIFIED OF DECREASED BP OF 97/60. NO NEW ORDERS AT THIS TIME.
[2020-02-05] MEDS: BETAMETHASONE 30 MG/5 ML MDV 6 MG INJ (09:43)
[2020-02-05] MEDS: DEXAMETHASONE 10 MG/ML VIAL 20 MG INJ (09:43)
--- NOTE | 2020-02-05 09:46 | PC.NURSE ---
ASSISTING PT OFF TABLE AND TRANSPORTING TO POST PROC AREA IN STABLE CONDITION. PASSING RN CARE OF PT OFF TO L[facility] ROMO.
--- NOTE | 2020-02-05 10:31 | PC.NURSE ---
pt returned to preproc room via wc, assisted from wc to chair, monitoring resumed by juan Locke
--- NOTE | 2020-02-11 13:12 | P.PCN_ITS ---
Procedures Date/Time Date of procedure: 02/05/20 Time of procedure: 08:31 General Procedure description: PREOP DIAGNOSIS 1. FORMAINAL STENOSIS WITH LE SYMPTOMS POST OP DIAGNOSIS 1. FORMAINAL STENOSIS WITH LE SYMPTOMS PROCEDURES 1. FLUOROSCOPICALLY GUIDED CONTRAST CONTROLLED TRANSFORAMINAL EPIDURAL STEROID INJECTION - RIGHT L4/5 TFESI PHYSICIAN: Stanton Castellon DO INDICATIONS: Ivan is referred by Dr. Angel for treatment of Foraminal Stenosis with Right LE Symptoms FINDINGS Foraminal Nerve Root Compression secondary to disc disease and facet hypertrophy DESCRIPTION OF PROCEDURE: Following review of allergy and review of potential side effects and complications, including, but not necessarily limited to, infection, allergic reaction, local tissue breakdown, stroke, temporary or permanent nerve injury, paralysis, and possible , the patient indicated that the patient understood and agreed to proceed. An informed consent document was signed by the patient, witnessed by a nurse, and placed in the patient's chart. Additionally, other treatment options including medications, modalities, and physical therapy were reviewed with the patient. After review of previous anaesthesic history and IV conscious sedation the patient was deemed safe to proceed with todays procedure with IV conscious sedation as ASA class II designation. Safety time-out was performed to confirm patient ID, procedure to be performed and site of procedure. IV sedation was accomplished with a combination of 2mg of Versed was administered by the RN after DO order, titrated to patient comfort during the course of the procedure while the patient remained responsive to all verbal commands In the prone position following sterile prep and drape of the lumbar region, the Right L4/5 posterior neuroforamen was identified fluoroscopically. The skin was anesthetized via a 25-gauge 1.5-inch needle with 1% lidocaine solution. At this point, a 25-gauge 3.5-inch spinal needle was atraumatically introduced and advanced under fluoroscopic guidance through the posterior Right L4/5 neuroforamen to approximately the anterior aspect of the canal. Depth was confirmed on lateral view. Following negative aspiration, injection of approximately 1.5 cc of Isovue 200 under live fluoroscopy in the AP view confirmed excellent flow along the nerve root, into the epidural space without vascular or intrathecal uptake observed Radiological data, including multiple fluoroscopic views of the lumbosacral spine, reveal a spinal needle at the right L4/5 posterior neuroforamen. Subsequent views show flow of contrast material flowing superiorly and inferiorly along the nerve root confirming epidural flow. Subsequently, a test dose of 1.5 cc of 1% lidocaine solution was administered and patient was observed for two minutes for signs or symptoms of complications, including abdominal pain, shortness of breath, bilateral upper or lower extremity weakness, nausea and vomiting, prior to steroid injection. At this point, a total of 3cc or 20mg of dexamethasone and 6mg of betamethasone was injected without incident. The procedure tolerated the procedure well without signs or symptoms of complications prior to transfer to the recovery area continued monitoring without incident.The patient was then transferred to the recovery area where they were observed for an appropriate time after the injection. The patient reported a VAS score of 7 prior to the procedure and a post- procedure VAS of 0. Total Fluoroscopy Time: 8 seconds Total Conscious Sedation Time: 24min POST OP INSTRUCTIONS The patient was provided a Pain Log to continue to record their response to the target-specific procedure prior to follow-up visit with their referring physician. Additionally, specific post-injection care instructions and a contact number to our office were provided if concerns arise regarding possible complications associated with the procedure are suspected. Stanton Castellon DO Complications: none
== END 2020-02-05 10:32 | disposition home or self-care (01) ==
LOC: RAD 08:11
PROVIDERS: PCP Family Medicine; Referring Provider Physical Medicine & Rehabilitation; Visit Provider Physical Medicine & Rehabilitation
DX: M48.061 Spinal stenosis, lumbar region without neurogenic claudication (principal); M51.16 Intervertebral disc disorders with radiculopathy, lumbar region
CPT/HCPCS: 64483; 99152; J0702; J1100; J2250; J3010

== ENCOUNTER → 2020-03-24 12:29 | Outpatient (ROUT) | payer MEDICARE, OTHER, SELFPAY ==
[2020-03-24 12:36] LABS: Add Manual Diff / Slide Review NO; Basophils Absolute Auto 0 /uL (0-100); Basophils Percent Auto 0.6 % (0-2); Eosinophils Absolute Auto 300 /uL (0-450); Eosinophils Percent Auto 4.9 % (2-4); Hematocrit 35.5 % (41-53); Hemoglobin 12.4 g/dL (13.5-17.5); INR 1.9 (0.9-1.3); Lymphocytes Absolute Auto 1300 /uL (1100-4500); Mean Corpuscular HGB Conc 34.8 % (30-36); Mean Corpuscular Hemoglobin 33.8 PG (26-34); Mean Corpuscular Volume 97.1 fL (80-100); Monocytes Absolute Auto 400 /uL (0-900); Monocytes Percent Auto 6.5 % (3-14); Neutrophils Absolute Auto 4100 /uL (1500-7000); Platelet Count 215 X10^3/uL (150-400); Prothrombin Time 22.2 SECONDS (10.1-12.7); Red Blood Cell Count 3.66 X10^6/uL (4.5-5.9); Red Cell Distribution Width 13.4 % (11.6-14.8); White Blood Cell Count 6.2 X10^3/uL (4.5-11.0)
[2020-03-24 13:13] LABS: Iron 197 ug/dL (49-181)
[2020-03-24 13:49] LABS: Ferritin 25 ng/mL (18-464)
== END ==
PROVIDERS: PCP Family Medicine; Visit Provider Family Medicine
DX: E53.8 Deficiency of other specified B group vitamins (principal); R53.83 Other fatigue; G83.10 Monoplegia of lower limb affecting unspecified side; E11.9 Type 2 diabetes mellitus without complications; D64.9 Anemia, unspecified; Z79.01 Long term (current) use of anticoagulants; Z95.2 Presence of prosthetic heart valve
CPT/HCPCS: 82728; 83540; 85025; 85610

== ENCOUNTER → 2020-04-12 14:08 | Outpatient (CLI) | payer MEDICARE, OTHER, SELFPAY ==
[2020-04-13 06:16] LABS: COVID19 Sendout Not Detected (Not Detect)
== END ==
PROVIDERS: PCP Family Medicine; Visit Provider Physician Assistant
DX: Z11.59 Encounter for screening for other viral diseases (principal)
CPT/HCPCS: 87635

== ENCOUNTER 2020-04-15 14:22 | Outpatient (CLI) | payer MEDICARE, OTHER, SELFPAY ==
[2020-04-15] VITALS (8 sets, daily range): BP systolic 135–166; BP diastolic 60–74; PULSE 54–64; RESP 17–26; TEMP 36.5; O2SAT 96–99
--- NOTE | 2020-04-15 14:23 | DI.RAD.S_ITS ---
PROCEDURE: PAIN L/S TRANSFORAMINAL INJECT INDICATIONS: SPONDYLOSIS COMPARISON: [facility], [place], PAIN L/S TRANSFORAMINAL INJECT, 02/05/2020, 8:31. [facility], XA, PAIN L/S TRANSFORAMINAL INJECT, 03/01/2019, 8:09. FINDINGS: Fluoroscopic spot filming was performed to verify placement of spinal needles at the right L2-3 level(s), as labeled on the films. Appropriate location(s) of the needle tip(s) was confirmed by injection of iodinated contrast. IMPRESSION: Successful needle tip localization at the right neural foramen os, for transforaminal epidural steroid injection at L2-L3. Dictated by: Ashkan Schreiber M.D. on 04/15/2020 at 16:25 Approved by: Ashkan Schreiber M.D. on 04/15/2020 at 16:25
[2020-04-15] MEDS: MIDAZOLAM 5 MG/5 ML VIAL IV (15:37)
[2020-04-15] MEDS: BUPIVACAINE 0.25% (PF) VIAL 2 ML INJ (15:42)
[2020-04-15] MEDS: BETAMETHASONE 30 MG/5 ML MDV 6 MG INJ (15:42)
[2020-04-15] MEDS: DEXAMETHASONE 10 MG/ML VIAL 20 MG INJ (15:42)
[2020-04-15] MEDS: IOPAMIDOL 15 ML VIAL 3 ML INJ (15:42)
--- NOTE | 2020-04-15 16:02 | P.PCN_ITS ---
Date/Time/Diagnoses Date of procedure: 04/15/20 Time of procedure: 16:02 Pre-procedure diagnosis: 1. FORAMINAL STENOSIS WITH LE SYMPTOMS Post-procedure diagnosis: same Procedure Notes Procedure: 1. FLUOROSCOPICALLY GUIDED CONTRAST CONTROLLED TRANSFORAMINAL EPIDURAL STEROID INJECTION - RIGHT L2/3 TFESI Indications: Ivan is referred by Dr. Angel for treatment of Foraminal Stenosis with right LE Symptoms Physician: Stanton Castellon Total Fluoroscopy time (seconds): 9 Total sedation minutes: 11 Complications: none Procedure in detail & Post-procedure care: FINDINGS Foraminal Nerve Root Compression secondary to disc disease and facet hypertrophy DESCRIPTION OF PROCEDURE Following review of allergy and review of potential side effects and complications, including, but not necessarily limited to, infection, allergic reaction, local tissue breakdown, stroke, temporary or permanent nerve injury, paralysis, and possible , the patient indicated that the patient understood and agreed to proceed. An informed consent document was signed by the patient, witnessed by a nurse, and placed in the patient's chart. Additionally, other treatment options including medications, modalities, and physical therapy were reviewed with the patient. After review of previous anaesthesic history and IV conscious sedation the patient was deemed safe to proceed with today?s procedure with IV conscious sedation as ASA class II designation. Safety time-out was performed to confirm patient ID, procedure to be performed and site of procedure. IV sedation was accomplished with a combination of 2mg of Versed was administered by the RN after DO order, titrated to patient comfort during the course of the procedure while the patient remained responsive to all verbal commands In the prone position following sterile prep and drape of the lumbar region, the right L2/3 posterior neuroforamen was identified fluoroscopically. The skin was anesthetized via a 25-gauge 1.5-inch needle with 1% lidocaine solution. At this point, a 25-gauge 3.5-inch spinal needle was atraumatically introduced and advanced under fluoroscopic guidance through the posterior right L2/3 neuroforamen to approximately the anterior aspect of the canal. Depth was confirmed on lateral view. Following negative aspiration, injection of approximately 1.5 cc of Isovue 200 under live fluoroscopy in the AP view confi rmed excellent flow along the nerve root, into the epidural space without vascular or intrathecal uptake observed Radiological data, including multiple fluoroscopic views of the lumbosacral spine, reveal a spinal needle at the right L2/3 posterior neuroforamen. Subsequent views show flow of contrast material flowing superiorly and inferiorly along the nerve root confirming epidural flow. Subsequently, a test dose of 1.5cc of 1% lidocaine solution was administered and patient was observed for two minutes for signs or symptoms of complications, including abdominal pain, shortness of breath, bilateral upper or lower extremity weakness, nausea and vomiting, prior to steroid injection. At this point, a total of 3cc or 20mg of dexamethasone and 6mg of betamethasone was injected without incident. The patient tolerated the procedure well without signs or symptoms of complications prior to transfer to the recovery area continued monitoring without incident. The patient was then transferred to the recovery area where they were observed for an appropriate time after the injection. The patient reported a VAS score of 7 prior to the procedure and a post-procedure VAS of 0. POST OP INSTRUCTIONS The patient was provided a Pain Log to continue to record their response to the target-specific procedure prior to follow-up visit with their referring physi man. Additionally, specific post-injection care instructions and a contact number to our office were provided if concerns arise regarding possible complications associated with the procedure are suspected.
== END 2020-04-15 16:12 | disposition home or self-care (01) ==
PROVIDERS: PCP Family Medicine; Referring Provider Family Medicine; Visit Provider Physical Medicine & Rehabilitation
DX: M48.061 Spinal stenosis, lumbar region without neurogenic claudication (principal); M51.16 Intervertebral disc disorders with radiculopathy, lumbar region
CPT/HCPCS: 64483; 99152; J0702; J1100; J2250; J3010

== ENCOUNTER → 2020-07-07 08:51 | Outpatient (CLI) | payer MEDICARE, OTHER, SELFPAY ==
--- NOTE | 2020-07-07 08:54 | DI.RAD.S_ITS ---
PROCEDURE: XR LUMBAR SPINE MIN 4V INDICATIONS: Pain. Prior postoperative change. TECHNIQUE: 5 total views of the lumbar spine were acquired, including bilateral oblique views. COMPARISON: [facility], CT, IVP (ABD & PEL WWO CONTRAST), 01/03/2017, 11:15. [facility], CR, L-SPINE MINIMUM 4 VIEWS, 07/11/2007, 0:00. [facility], MR, MR LUMBAR SPINE WO/W CON, 02/06/2019, 8:07. [facility], [place], XR LUMBAR SPINE 2-3V, 02/14/2019, 14:37. FINDINGS: Bones: This patient has transitional lumbar anatomy. For the purposes of this examination, the level with the vestigial ribs is considered to be T12. By this numbering scheme, the L5 level is transitional and highly sacralized. The transitional lumbar anatomy is best seen by prior CT, such as on 01/03/2017. Postoperative changes are seen, with bilateral pedicle screws at the L2 and L3 levels. The screws appear well placed. Vertical fixation rods are seen. No findings of hardware failure or hardware loosening are seen. 5 nonrib-bearing, lumbar type vertebral bodies are seen. No acute appearing fractures are seen. No suspicious lytic or blastic lesions can be seen. Moderate to severe disc space narrowing is seen at T12-L1, L1-2, L2-3, and L3-4, with at least moderate disc space narrowing at L4-5. Moderate to severe disc space narrowing is seen at L5-S1. Lower lumbar spine facet arthropathy is seen. Moderate dextroconvex lumbar scoliosis is seen. There is minimal retrolisthesis seen at L1-2, with minimal anterolisthesis seen at L3-4. Soft tissues: Overlying bowel gas pattern is normal. No suspicious soft tissue calcifications. Cholecystectomy clips are seen. Oblique images: No pars defects. IMPRESSION: Unremarkable L2-3 hardware. Moderate dextroconvex scoliosis. Degenerative changes seen throughout. 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 Cholecystectomy noted. Dictated by: Scott Jauregui M.D. on 07/07/2020 at 8:50 Approved by: Scott Jauregui M.D. on 07/07/2020 at 8:56
== END ==
PROVIDERS: PCP Family Medicine; Referring Provider Physical Medicine & Rehabilitation; Visit Provider Physical Medicine & Rehabilitation
DX: M54.5 Low back pain (principal); M41.86 Other forms of scoliosis, lumbar region; M47.816 Spondylosis without myelopathy or radiculopathy, lumbar region; E11.42 Type 2 diabetes mellitus with diabetic polyneuropathy; Z95.2 Presence of prosthetic heart valve; Z98.1 Arthrodesis status; Z79.4 Long term (current) use of insulin
CPT/HCPCS: 72110; 99214

== ENCOUNTER → 2020-07-28 10:35 | Outpatient (CLI) | payer MEDICARE, OTHER, SELFPAY ==
[2020-07-28 13:11] LABS: COVID19 -Nasal RAPID Negative (Negative)
== END ==
PROVIDERS: PCP Family Medicine; Visit Provider Physical Medicine & Rehabilitation
DX: Z01.812 Encounter for preprocedural laboratory examination (principal); Z20.828 Contact with and (suspected) exposure to other viral communicable diseases
CPT/HCPCS: 87635; C9803

== ENCOUNTER 2020-07-31 08:54 | Outpatient (CLI) | payer MEDICARE, OTHER, SELFPAY ==
[2020-07-31] VITALS (8 sets, daily range): BP systolic 110–143; BP diastolic 46–64; PULSE 61–71; RESP 12–28; TEMP 36.6; O2SAT 97–99
--- NOTE | 2020-07-31 08:57 | DI.RAD.S_ITS ---
PROCEDURE: PAIN L INTERLAMINAR/CAUDAL INJ INDICATIONS: SPONDYLOSIS COMPARISON: [facility], CR, XR LUMBAR SPINE MIN 4V, 07/07/2020, 9:00. [facility], XA, PAIN L/S TRANSFORAMINAL INJECT, 04/15/2020, 15:41. [facility], XA, PAIN L/S TRANSFORAMINAL INJECT, 02/05/2020, 8:31. FINDINGS: Fluoroscopic spot filming was performed to verify placement of spinal needles at the L4-L5 level(s), as labeled on the films. Appropriate location(s) of the needle tip(s) was confirmed by injection of iodinated contrast. IMPRESSION: Fluoroscopy for pain management. Dictated by: Norm Rendon M.D. on 07/31/2020 at 10:52 Approved by: Norm Rendon M.D. on 07/31/2020 at 10:53
[2020-07-31] MEDS: MIDAZOLAM 5 MG/5 ML VIAL IV (09:44)
[2020-07-31] MEDS: DEXAMETHASONE 10 MG/ML VIAL 20 MG INJ (09:53)
[2020-07-31] MEDS: BETAMETHASONE 30 MG/5 ML MDV 6 MG INJ (09:53)
[2020-07-31] MEDS: IOPAMIDOL 15 ML VIAL 3 ML INJ (09:53)
[2020-07-31] MEDS: BUPIVACAINE 0.25% (PF) VIAL 2 ML INJ (09:53)
--- NOTE | 2020-07-31 10:02 | P.PCN_ITS ---
Date/Time/Diagnoses Date of procedure: 07/31/20 Time of procedure: 10:02 Pre-procedure diagnosis: 1. HNP WITH RADICULAR FEATURES, 2. MULTILEVEL CENTRAL STENOSIS, Post-procedure diagnosis: same Procedure Notes Procedure: 1. FLUOROSCOPICALLY GUIDED CONTRAST CONTROLLED INTERLAMINAR EPIDURAL STEROID INJECTION -L4/5 Indications: Ivan is referred for treatment of Bilateral Foraminal Stenosis R>L LE symptoms. Physician: Stanton Castellon Total Fluoroscopy time (seconds): 7 Total sedation minutes: 10 Complications: none Procedure in detail & Post-procedure care: FINDINGS Multilevel Central Spinal Stenosis with Nerve Root Compression DESCRIPTION OF PROCEDURE Fluoroscopically guided, contrast-controlled L4/5 translaminar epidural steroid injection. Following review of allergy and review of potential side effects and complications, including, but not necessarily limited to, infection, allergic reaction, local tissue breakdown, temporary as well as permanent nerve injury, paralysis, stroke and possible , the patient indicated that the patient understood and agreed to proceed. An informed consent document was signed by the patient, witnessed by a nurse, and placed in the patient's chart. Additionally, other treatment options including modalities, medications, and physical therapy were reviewed with the patient. After review of previous anaesthesic history and IV conscious sedation the patient was deemed safe to proceed with today?s procedure with IV conscious sedation as ASA class II designation. Safety time-out was performed to confirm patient ID, procedure to be performed and site of procedure. IV sedation was accomplished with a combination of 2mg of Versed was administered by the RN after DO order, titrated to patient comfort during the course of the procedure while the patient remained responsive to all verbal commands In the prone position, following sterile prep and drape of the lumbar region, the L4/5 translaminar space was identified fluoroscopically. The skin was anesthetized via a 25-gauge, 1.5inch needle with 1% lidocaine solution. At this point, a 22-gauge short bevel spinal needle was atraumatically introduced and advanced under fluoroscopic guidance into the region of the L4/5 translaminar space. Depth was confirmed on lateral view. Radiological data, including multiple fluoroscopic views of the lumbar spine, reveal a spinal needle at the L4/5 translaminar space. Lateral views then show placement of the needle in the epidural space. Subsequent views show contrast material flowing superiorly and inferiorly in the epidural space. No vascular or intrathecal uptake is observed. At this point, using loss of resistance technique with saline and air, the epidural space was entered. This was confirmed following negative aspiration with injection of approximately 1.5cc of Isovue 200, showing excellent epidural flow without vascular or intrathecal uptake. At this point, 1cc of 1% lidocaine solution combined with 3cc or 20mg of dexamethasone and 6mg betamethasone was injected without incident. The patient tolerated the procedure well without signs or symptoms of complications prior to transfer to the recovery area continued monitoring without incident. The patient was then transferred to the recovery area where they were observed for an appropriate period of time after the injection. The patient reported a VAS score of 6 prior to the procedure and a post- procedure VAS of 0. POST OP INSTRUCTIONS The patient was provided a Pain Log to continue to record their response to the target-specific procedure prior to follow-up visit with their referring physician. Additionally, specific post-injection care instructions and a contact number to our office were provided if concerns arise regarding possible complications associated with the procedure are suspected.
== END 2020-07-31 10:15 | disposition home or self-care (01) ==
LOC: RAD 08:57
PROVIDERS: Referring Provider Physical Medicine & Rehabilitation; Visit Provider Physical Medicine & Rehabilitation
DX: M51.16 Intervertebral disc disorders with radiculopathy, lumbar region (principal); M48.061 Spinal stenosis, lumbar region without neurogenic claudication
CPT/HCPCS: 62323; 99152; J0702; J1100; J2250; J3010

== ENCOUNTER → 2020-11-19 13:34 | Outpatient (CLI) | payer MEDICARE, OTHER, SELFPAY ==
--- NOTE | 2020-11-19 13:37 | DI.RAD.S_ITS ---
PROCEDURE: XR KNEE LT 3V INDICATIONS: left knee pain TECHNIQUE: 3 views of the knee were acquired. COMPARISON: [facility], , KNEE 3V RIGHT, 03/07/2008, 8:17. FINDINGS: Bones: No acute fractures or dislocations. No suspicious bony lesions. Joint spaces are maintained. Soft tissues: No joint effusion. Calcifications in the lateral femorotibial compartment and to a lesser extent the medial compartment are compatible with chondrocalcinosis. Arterial vascular calcifications are present. IMPRESSION: 1. No acute osseous abnormality. If the symptoms persist with conservative management, consider cross sectional imaging such as CT or MRI for further assessment. 2. Chondrocalcinosis. Dictated by: Con Brown M.D. on 11/19/2020 at 17:07 Approved by: Con Brown M.D. on 11/19/2020 at 17:09
== END ==
PROVIDERS: Referring Provider Family Medicine; Visit Provider Family Medicine
DX: M11.262 Other chondrocalcinosis, left knee (principal); M25.562 Pain in left knee
CPT/HCPCS: 73562

== ENCOUNTER → 2021-01-07 14:54 | Outpatient (CLI) | payer MEDICARE, OTHER, SELFPAY ==
--- NOTE | 2021-01-07 14:56 | DI.ECHO.S_ITS ---
[facility]+ [facility] +---------+ : : [address] : : : : [id number] : : : : Phone: [phone]---------+ Echocardiogram Report + + :Name: ALMAZ BENZ V Study Date: 01/07/2021 Height: 72 in : :[facility] ReadingLocation: Weight: 199 lb : : Gender: Male BSA: 2.1 m2 : :: 1935 Age: 85 yrs BP: 143/63 mmHg: :Reason For Study: AORTOCORONARY BYPASS GRAFT : :Ordering Physician: : :CONNOR MALIK Performed By: Leigh Stephens : :Referring: CONNOR MALIK : + + Interpretation Summary Mildly dilated left ventricle with ejection fraction 60-65%. Grade I diastolic dysfunction. The mechanical aortic valve is well-seated. The peak aortic velocity is 3.8 m/sec. Moderate mitral annular calcification. Comparison is made with the echocardiogram of 11/24/2016, there has been no significant change. Procedure: A two-dimensional transthoracic echocardiogram with color flow and Doppler was performed. The study quality was technically adequate. Comparison is made with the echocardiogram of 11/24/2016. The patient was in sinus rhythm with heart rates between 55-67 bpm during the exam. Left Ventricle: The left ventricle is mildly dilated. There is normal left ventricular wall thickness. The ejection fraction is estimated to be 60-65%. There are no focal wall motion abnormalities. Diastolic parameters suggest a relaxation abnormality of the left ventricle, consistent with probable normal filling pressures. Right Ventricle: The right ventricle is normal in size and function. Atria: The left atrial size is normal. The right atrium is borderline dilated. There is no Doppler evidence for an interatrial shunt. Mitral Valve: There is moderate mitral annular calcification. The mitral valve leaflets appear mildly thickened, but open well. There is trace mitral regurgitation. Aortic Valve: There is a mechanical aortic valve. The prosthetic aortic valve is well-seated. The peak aortic velocity is 3.8 m/sec. The aortic valve mean gradient is 28 mmHg. The calculated aortic valve area is 1.0 cm2. No aortic regurgitation is present. Tricuspid Valve: The tricuspid valve is normal in structure and function. There is trace tricuspid regurgitation. Pulmonary artery pressures cannot be estimated because of the lack of a measurable TR jet velocity but the IVC suggests a CVP of around 3 mmHg. Pulmonic Valve: The pulmonic valve is not well visualized. There is no pulmonic valvular regurgitation. Great Vessels: The aortic root is normal size. The dimensions of the ascending aorta are normal. The IVC is of normal diameter and collapses greater than 50% with a sniff. This suggests a low right atrial pressure of 3 mm Hg. Pericardium/ Pleura There is no pericardial effusion. There is no pleural effusion. MMode/2D Measurements & Calculations LVIDd: 6.1 cm LVOT diam: 2.0 cm LVIDs: 4.1 cm asc Aorta Diam: 3.2 cm FS: 32.5 % Ao Arch Diam (Prox Trans): 2.1 cm EPSS: 0.93 cm IVSd: 0.92 cm LVPWd: 0.83 cm LV benz. diameter/BSA (cm/m^2): 2.9 LV sys. diameter/BSA (cm/m^2): 1.9 LA A2 area: 21.2 cm2 RA long axis: 5.2 cm LA A4 area: 21.6 cm2 RA area: 21.1 cm2 LA length (vol): 5.7 cm RA vol: 72.2 ml LA vol: 68.3 ml RA : 34.0 ml/m2 LA vol index: 32.1 ml/m2 IVC diam: 1.7 cm RVD1 (basal): 3.4 cm TAPSE: 1.8 cm Doppler Measurements & Calculations Ao V2 max: 378.2 cm/sec LVOT Max Dontrell: 113.4 cm/sec Ao V2 mean: 236.1 cm/sec LV V1 max P.1 mmHg Ao max P.2 mmHg LV V1 VTI: 27.1 cm Ao mean P.8 mmHg LUCHO(I,D): 1.0 cm2 Ao V2 VTI: 84.0 cm LUCHO(V,D): 0.97 cm2 sev ratio: 0.32 LUCHO indexed to BSA (cm^2/m^2): 0.49 MV E max dontrell: 122.9 cm/sec PA V2 max: 135.7 cm/sec MV A max dontrell: 158.6 cm/sec PA V2 mean: 88.2 cm/sec MV E/A: 0.78 PA mean P.5 mmHg Med Peak E' Dontrell: 6.2 cm/sec PA pr(Accel): 43.0 mmHg E/E' med: 19.9 Lat Peak E' Dontrell: 8.8 cm/sec E/E' lat: 13.9 E/e' average: 16.9 MV dec time: 0.27 sec MVA(VTI): 1.8 cm2 MV V2 mean: 66.7 cm/sec SV(LVOT): 87.3 ml MV mean P.2 mmHg MV V2 VTI: 48.7 cm Electronically signed by: Connor Hopkins on Reading Physician:01/09/2021 11:40 AM
== END ==
PROVIDERS: PCP Family Medicine; Referring Provider Internal Medicine Interventional Cardiology; Visit Provider Internal Medicine Interventional Cardiology
DX: Z09 Encounter for follow-up examination after completed treatment for conditions other than malignant neoplasm (principal); Z95.1 Presence of aortocoronary bypass graft; Z95.2 Presence of prosthetic heart valve
CPT/HCPCS: 93306

== ENCOUNTER → 2021-03-04 10:45 | Outpatient (CLI) | payer MEDICARE, OTHER, SELFPAY ==
[2021-03-04 11:23] LABS: Hemoglobin A1C% w Est Avg Glu 6.5 % (4.0-6.0)
[2021-03-04 11:58] LABS: Prostate Specific Antigen 1.71 ng/mL (0.10-4.00)
== END ==
PROVIDERS: Specialist; PCP Family Medicine; Referring Provider Family Medicine; Visit Provider Family Medicine
DX: E11.9 Type 2 diabetes mellitus without complications (principal); N40.1 Benign prostatic hyperplasia with lower urinary tract symptoms; N13.8 Other obstructive and reflux uropathy; Z80.42 Family history of malignant neoplasm of prostate
CPT/HCPCS: 36415; 83036; 84153

== ENCOUNTER → 2021-05-04 11:53 | Outpatient (CLI) | payer MEDICARE, OTHER, SELFPAY ==
--- NOTE | 2021-05-04 | DI.RAD.S_ITS ---
PROCEDURE: XR CHEST 2V INDICATIONS: PAIN AFTER FALL TECHNIQUE: 2 views of the chest were acquired. COMPARISON: [facility], CR, XR CHEST 2V, 09/17/2019, 9:59. FINDINGS: Surgical changes and devices: Post median sternotomy and CABG. Aortic valve replacement. Lungs and pleura: Lungs are clear. No pleural effusions or pneumothorax. Mediastinum: Mediastinal contours are normal. Heart size is at the upper limits of normal. Bones and chest wall: No suspicious bony abnormalities. No obvious fracture. Soft tissues appear unremarkable. IMPRESSION: No acute cardiopulmonary abnormality. If concern for occult fracture consider additional views. Dictated by: Venkat Reyez M.D. on 05/04/2021 at 13:55 Approved by: Venkat Reyez M.D. on 05/04/2021 at 14:16
== END ==
PROVIDERS: PCP Family Medicine; Referring Provider Family Medicine; Visit Provider Family Medicine
DX: R07.9 Chest pain, unspecified (principal)
CPT/HCPCS: 71046

== ENCOUNTER → 2021-05-12 09:45 | Outpatient (CLI) | payer MEDICARE, OTHER, SELFPAY ==
[2021-05-12 12:06] LABS: COVID19 -Nasal RAPID Negative (Negative)
== END ==
PROVIDERS: PCP Family Medicine; Visit Provider Physical Medicine & Rehabilitation
DX: Z20.822 Contact with and (suspected) exposure to COVID-19 (principal)
CPT/HCPCS: 87635; C9803

== ENCOUNTER 2021-05-14 07:54 | Outpatient (CLI) | payer MEDICARE, OTHER, SELFPAY ==
[2021-05-14] VITALS (9 sets, daily range): BP systolic 106–138; BP diastolic 53–63; PULSE 61–67; RESP 2–22; TEMP 36.2–36.4; O2SAT 96–100
--- NOTE | 2021-05-14 07:56 | DI.RAD.S_ITS ---
PROCEDURE: PAIN L INTERLAMINAR/CAUDAL INJ INDICATIONS: SPONDYLOSIS COMPARISON: [facility], XA, PAIN L INTERLAMINAR/CAUDAL INJ, 07/31/2020, 9:47. FINDINGS: Fluoroscopic spot filming was performed to verify placement of spinal needles at the L4-L5 level(s), as labeled on the films. Appropriate location(s) of the needle tip(s) was confirmed by injection of iodinated contrast. Dictated by: Shaun Bowman M.D. on 05/14/2021 at 9:52 Approved by: Shaun Bowman M.D. on 05/14/2021 at 9:52
[2021-05-14] MEDS: MIDAZOLAM 5 MG/5 ML VIAL IV (09:10)
[2021-05-14] MEDS: BUPIVACAINE 0.25% (PF) VIAL 2 ML INJ (09:13)
[2021-05-14] MEDS: IOPAMIDOL 15 ML VIAL 3 ML INJ (09:13)
[2021-05-14] MEDS: DEXAMETHASONE 10 MG/ML VIAL 20 MG INJ (09:14)
[2021-05-14] MEDS: methylPREDNISolone acetate 80 MG/ML VIAL INJ (09:14)
--- NOTE | 2021-05-14 09:19 | P.PCN_ITS ---
Date/Time/Diagnoses Date of procedure: 05/14/21 Time of procedure: 09:19 Pre-procedure diagnosis: 1. HNP WITH RADICULAR FEATURES, 2. MULTILEVEL CENTRAL STENOSIS, Post-procedure diagnosis: same Procedure Notes Procedure: 1. FLUOROSCOPICALLY GUIDED CONTRAST CONTROLLED INTERLAMINAR EPIDURAL STEROID INJECTION -L4/5 Indications: Ivan is referred by Dr. Rivera for treatment of Bilateral Foraminal Stenosis R>L LE symptoms. Physician: Stanton Castellon Total Fluoroscopy time (seconds): 7 Total sedation minutes: 7 Complications: none Procedure in detail & Post-procedure care: FINDINGS Multilevel Central Spinal Stenosis with Nerve Root Compression DESCRIPTION OF PROCEDURE Fluoroscopically guided, contrast-controlled L4/5 translaminar epidural steroid injection. Following review of allergy and review of potential side effects and complications, including, but not necessarily limited to, infection, allergic reaction, local tissue breakdown, temporary as well as permanent nerve injury, paralysis, stroke and possible , the patient indicated that the patient understood and agreed to proceed. An informed consent document was signed by the patient, witnessed by a nurse, and placed in the patient's chart. Additionally, other treatment options including modalities, medications, and physical therapy were reviewed with the patient. After review of previous anaesthesic history and IV conscious sedation the patient was deemed safe to proceed with today?s procedure with IV conscious sedation as ASA class II designation. Safety time-out was performed to confirm patient ID, procedure to be performed and site of procedure. IV sedation was accomplished with a combination of 2mg of Versed was administered by the RN after DO order, titrated to patient comfort during the course of the procedure while the patient remained responsive to all verbal commands In the prone position, following sterile prep and drape of the lumbar region, the L4/5 translaminar space was identified fluoroscopically. The skin was anesthetized via a 25-gauge, 1.5inch needle with 1% lidocaine solution. At this point, a 22-gauge short bevel spinal needle was atraumatically introduced and advanced under fluoroscopic guidance into the region of the L4/5 translaminar space. Depth was confirmed on lateral view. Radiological data, including multiple fluoroscopic views of the lumbar spine, r eveal a spinal needle at the L4/5 translaminar space. Lateral views then show placement of the needle in the epidural space. Subsequent views show contrast material flowing superiorly and inferiorly in the epidural space. No vascular or intrathecal uptake is observed. At this point, using loss of resistance technique with saline and air, the epidural space was entered. This was confirmed following negative aspiration with injection of approximately 1.5cc of Isovue 200, showing excellent epidural flow without vascular or intrathecal uptake. At this point, 1cc of 1% lidocaine solution combined with 3cc or 20mg of dexamethasone and 80mg of depo medrol was injected without incident. The patient tolerated the procedure well without signs or symptoms of complications prior to transfer to the recovery area continued monitoring without incident. The patient was then transferred to the recovery area where they were observed for an appropriate period of time after the injection. The patient reported a VAS score of 6 prior to the procedure and a post- procedure VAS of 0. POST OP INSTRUCTIONS The patient was provided a Pain Log to continue to record their response to the target-specific procedure prior to follow-up visit with their referring physician. Additionally, specific post-injection care instructions and a contact number to our office were provided if concerns arise regarding possible complications associated with the procedure are suspected.
== END 2021-05-14 09:45 | disposition home or self-care (01) ==
LOC: RAD 07:56
PROVIDERS: PCP Family Medicine; Referring Provider Physical Medicine & Rehabilitation; Visit Provider Physical Medicine & Rehabilitation
DX: M51.16 Intervertebral disc disorders with radiculopathy, lumbar region (principal); M48.061 Spinal stenosis, lumbar region without neurogenic claudication
CPT/HCPCS: 62323; J0702; J1040; J1100; J2250

== ENCOUNTER → 2021-09-22 10:36 | Outpatient (ROUT) | payer MEDICARE, OTHER, SELFPAY ==
[2021-09-22 10:44] LABS: INR 3.4 (0.9-1.3); Prothrombin Time 38.8 SECONDS (10.1-12.7)
== END ==
PROVIDERS: PCP Family Medicine; Visit Provider Family Medicine
DX: Z79.01 Long term (current) use of anticoagulants (principal); Z95.2 Presence of prosthetic heart valve
CPT/HCPCS: 85610

== ENCOUNTER → 2021-11-30 09:41 | Outpatient (CLI) | payer MEDICARE, OTHER, SELFPAY ==
[2021-11-30 12:12] LABS: BUN Creatinine Ratio 21.1 (6-22); Blood Urea Nitrogen 28 mg/dL (9-20); Calcium 9.3 mg/dL (8.4-10.2); Carbon Dioxide 30 mmol/L (22-32); Chloride 104 mmol/L (98-107); Cholesterol 122 mg/dL (140-199); Estimated Glomerular Filt Rate 52 mL/min (>60); Glucose 142 mg/dL (80-110); HDL Cholesterol 36 mg/dL (40-60); HEMOLYSIS < 15 (0-50); LDL Cholesterol Calculated 48 mg/dL (<100); Potassium 4.1 mmol/L (3.4-5.1); Sodium 140 mmol/L (137-145); Triglycerides 190 mg/dL (35-150)
== END ==
PROVIDERS: PCP Family Medicine; Referring Provider Internal Medicine Interventional Cardiology; Visit Provider Internal Medicine Interventional Cardiology
DX: I25.810 Atherosclerosis of coronary artery bypass graft(s) without angina pectoris (principal)
CPT/HCPCS: 36415; 80048; 80061

== ENCOUNTER → 2022-05-05 14:23 | Outpatient (CLI) | payer MEDICARE, OTHER, SELFPAY ==
--- NOTE | 2022-05-05 14:26 | DI.RAD.S_ITS ---
PROCEDURE: XR SHOULDER LT MIN 2V INDICATIONS: LEFT SHOULDER PAIN TECHNIQUE: 3 views of the shoulder were acquired. COMPARISON: None. FINDINGS: Bones: No fractures . Widening of the acromioclavicular interval to 17 mm. Mild periarticular osteophyte formation at the acromioclavicular and glenohumeral joints. No suspicious bony lesions. Visualized ribs appear intact. Soft tissues: No suspicious soft tissue calcifications. IMPRESSION: 1. Osteoarthritis. 2. Acromioclavicular separation. 3. No acute fracture. No osseous lesion. If symptoms and/or clinical suspicion for pathology persist, further assessment with repeat, or advanced imaging (e.g., CT, MRI, or bone scan) may be helpful for further assessment. Dictated by: Zeb Polk M.D. on 05/05/2022 at 16:44 Transcribed by: SHERRI on 05/05/2022 at 16:44 Approved by: Zeb Polk M.D. on 05/05/2022 at 16:58
== END ==
PROVIDERS: PCP Family Medicine; Referring Provider Physical Medicine & Rehabilitation; Visit Provider Physical Medicine & Rehabilitation
DX: S43.102A Unspecified dislocation of left acromioclavicular joint, initial encounter (principal); M25.512 Pain in left shoulder; M19.012 Primary osteoarthritis, left shoulder; X58.XXXA Exposure to other specified factors, initial encounter
CPT/HCPCS: 73030

== ENCOUNTER → 2022-09-01 10:12 | Outpatient (CLI) | payer MEDICARE, OTHER, SELFPAY ==
[2022-09-03 15:20] LABS: PSA Free % 19.2 % (.); PSA, Total 1.3 ng/mL (0.0-4.0)
== END ==
PROVIDERS: PCP Family Medicine; Referring Provider Specialist; Visit Provider Specialist
DX: R97.20 Elevated prostate specific antigen [PSA] (principal)
CPT/HCPCS: 36415; 84153; 84154

== ENCOUNTER → 2023-01-25 10:10 | Outpatient (CLI) | payer MEDICARE, OTHER, SELFPAY ==
--- NOTE | 2023-01-25 | DI.CT.S_ITS ---
PROCEDURE: CT HEAD/BRAIN WO CON INDICATIONS: Unspecified visual disturbance TECHNIQUE: Noncontrast 4.5 mm thick angled axial sections acquired from the foramen magnum to the vertex, with coronal and sagittal reformats. For radiation dose reduction, the following was used: automated exposure control, adjustment of mA and/or kV according to patient size. COMPARISON: [facility], CT, HEAD WITH AND WITHOUT CONTRAST, 07/23/2011, 12:23. [facility], CT, SINUS SCREEN WO CONTRAST, 09/25/2015, 12:07. FINDINGS: Image quality: Excellent. CSF spaces: Basal cisterns are patent. No extra-axial fluid collections. The ventricles are symmetric in size and shape. Brain: No intracranial bleeds or masses. There is cerebral volume loss for age, with resultant ventricular and sulcal prominence. There are periventricular and deep white matter chronic small vessel ischemic changes. There is intracranial internal carotid artery atherosclerosis. Skull and face: Calvarium and visualized facial bones appear intact, without suspicious lesions. Sinuses: Visualized sinuses and mastoids are clear. IMPRESSION: Unremarkable noncontrast head CT for age, without a cause of the patient's presenting history identified. If it would be helpful for clinical management decision making, please consider a dedicated, scheduled brain MRI (without and with contrast) for further evaluation (assuming that there is no contraindication). Dictated by: Scott Jauregui M.D. on 01/25/2023 at 10:08 Approved by: Scott Jauregui M.D. on 01/25/2023 at 10:11
== END ==
PROVIDERS: PCP Family Medicine; Referring Provider Family Medicine; Visit Provider Family Medicine
DX: S06.0X0A Concussion without loss of consciousness, initial encounter (principal); H53.9 Unspecified visual disturbance
CPT/HCPCS: 70450

== ENCOUNTER → 2023-07-14 10:12 | Outpatient (CLI) | payer MEDICARE, OTHER, SELFPAY ==
--- NOTE | 2023-07-14 10:14 | DI.RAD.S_ITS ---
PROCEDURE: XR KUB INDICATIONS: follow up TECHNIQUE: One view of the abdomen acquired. COMPARISON: None. FINDINGS: Surgical changes and devices: Lumbar fusion hardware is present. Cholecystectomy clips are present. Bowel: Bowel gas pattern is normal. Soft tissues: No suspicious abdominal calcifications. Visualized solid organ contours appear normal in size. Bones: No suspicious bony lesions. IMPRESSION: No acute process. Dictated by: Zeb Polk M.D. on 07/14/2023 at 11:40 Approved by: Zeb Polk M.D. on 07/14/2023 at 11:40
== END ==
PROVIDERS: Family Provider Family Medicine; PCP Family Medicine; Referring Provider Specialist; Visit Provider Specialist
DX: N40.1 Benign prostatic hyperplasia with lower urinary tract symptoms (principal); N13.8 Other obstructive and reflux uropathy; Z80.42 Family history of malignant neoplasm of prostate
CPT/HCPCS: 74018

== ENCOUNTER → 2023-07-28 08:48 | Outpatient (CLI) | payer MEDICARE, OTHER, SELFPAY ==
[2023-07-28 10:10] LABS: Appearance Urine UA CLEAR; Bilirubin Urine UA NEGATIVE (NEGATIVE); Color Urine UA YELLOW; Glucose Urine UA 3+ g/dL (Negative); Ketones Urine UA NEGATIVE (NEGATIVE); Leukocyte Esterase Urine UA TRACE (NEGATIVE); Nitrite Urine UA NEGATIVE (Negative); Occult Blood Urine UA NEGATIVE (Negative); Protein Urine UA NEGATIVE (Negative); Urobilinogen Urine UA 0.2 E.U./dL (0.2)
[2023-07-28 10:20] LABS: RBC Urine None Seen (0-5/HPF)
[2023-07-28 10:21] LABS: Bacteria Urine Many (>30); Culture Indicated Urine Specimen Cultured; Hyaline Casts Urine 0-1/LPF; Mucus Urine 1+ (Negative); Squamous Epithelial Cell Urine 0-1 /HPF (0-5/HPF); WBC Urine 5-10/HPF (0-5/HPF)
== END ==
PROVIDERS: Family Provider Family Medicine; PCP Family Medicine; Referring Provider Specialist; Visit Provider Specialist
DX: N40.1 Benign prostatic hyperplasia with lower urinary tract symptoms (principal); N13.8 Other obstructive and reflux uropathy
CPT/HCPCS: 81001; 87077; 87086; 87186

== ENCOUNTER 2023-10-11 09:45 | Outpatient (RCR) | payer MEDICARE, OTHER, SELFPAY ==
--- NOTE | 2023-09-20 11:44 | PT.OPPOC ---
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 Tawanna Arango MD Attending Provider Physician Referring Provider Specialty: Urology Address: [address] [place] [address], [id number] Email: Plan Of Care PT-OP-T Assessment and Plan Start: 09/27/23 08:47 Freq: Status: Active Protocol: Document 09/27/23 09:45 [facility] (Rec: 09/27/23 16:33 [facility] [id number]) Physical Therapy Assessment Rehab Potential Rehabilitation Potential Good Evaluation Complexity Number of Personal Factors/Comorbidities 0 Number of Body Systems Impaired 1-2 Clinical Presentation at Evaluation Stable Impairments Impairments Activity Tolerance,Functional Activities,Soft Tissue Mobility,Strength,Tone Other Impairments urinary urgency and incontinence Goals 3 Impairment Ivan lacks a home program for pelvic floor strengthening Fpc Goal (LTG) Ivan is independent with a HEP for pelvic floor strength and endurance training. LTG Duration 8 weeks 2 Impairment urinary urgency and leakage after pt has been sitting in his recliner and then goes to stand up Short Term Goal (STG) Ivan is educated on the urge deference technique to help him reduce bladder spasms and improve his ability to make it to the bathroom without leakage after he has been sitting STG Duration 5 weeks 1 Impairment Decreased endurance of the pelvic floor Short Term Goal (STG) Ivan is able to sustain a pelvic floor contraction in supine x 10 seconds STG Duration 4 weeks Fpc Goal (LTG) Ivan is able to sustain a pelvic floor contraction in standing x 5 seconds LTG Duration 8 weeks Assessment Summary Assessment Ivan is a 88 year old male referred to PT for pelvic floor strengthening prior to his aquablation procedure. He has a history of recurrent bladder outlet obstruction and recent history of UTI. His symptoms include urgency and urge incontinence symptoms. With exam today he was able to contract the levator ani however he lacks the ability to sustain a pelvic floor contraction more than 5 seconds. He was educated on a home program for pelvic floor strengthening as well as educated on urge deference technique and bladder retraining. Ivan is a good candidate for pelvic floor PT Physical Therapy Plan Frequency and Duration Frequency of Treatment 1x/Week Duration of treatment (weeks) 8 Plan of Care Start Date 09/27/23 Plan of Care End Date 11/22/23 Therapeutic Interventions Therapeutic Interventions Home Exercise Program, Neuromuscular Re-education, Patient/Caregiver Education, Self-Care/Home Management, Therapeutic Exercises Modalities Biofeedback Next Visit Focus/Plan Next Note Type Treatment Note Next Visit Plan Review pelvic floor exercises given today, review urge deference technique and bladder retraining, progress pelvic floor exercises Plan of Care Dates Plan of Care Start Date 09/27/23 Plan of Care End Date 11/22/23 Electronically Signed by: Janine Martinez, PT 09/29/23 [id number] If you are in agreement with this Plan of Care, please return a signed and dated copy. I have reviewed this Plan of Care and certify that the skilled therapy services above are required to meet the patient?s needs. Physician Signature Date Printed Name and Credentials Clinical Instructor Signature Printed Name and Credentials
--- NOTE | 2023-09-27 11:44 | PT.OIE ---
Current Diagnoses Other obstructive and reflux uropathy (09/27/23) Incontinence without sensory awareness (09/27/23) Benign prostatic hyperplasia with lower urinary tract symptoms (09/27/23) Pelvic muscle wasting (09/27/23) Past Medical History (Last Updated 09/01/23 @ 11:39 by Tawanna Arango MD) BPH w urinary obs/LUTS Cellulitis of left hand Chronic anticoagulation Facet arthropathy, lumbar Family history of prostate cancer Glucosuria Heart murmur History of UTI HLD (hyperlipidemia) HTN (hypertension) Impingement syndrome of left shoulder Irregular heartbeat Myocardial infarct Radiculopathy, lumbosacral region Sleep apnea in adult Sleep apnea with use of continuous positive airway pressure (CPAP) Urinary incontinence without sensory awareness Past Surgical History (Last Reviewed 09/01/23 @ 11:38 by Tawanna Arango MD) History of arthroplasty of right knee History of back surgery (~2009) History of open heart surgery History of repair of left rotator cuff History of repair of right rotator cuff Hx of appendectomy Hx of bilateral cataract extraction (~2017) Hx of cholecystectomy Hx of umbilical hernia repair S/P lumbar spinal fusion Status post epidural steroid injection (03/01/19) Visit Care Team Role Provider Type Sabas Rivera MD Family Provider Physician Primary Care Provider Specialty: Family Practice Address: [facility] [place], [address] Email: [email or web address] Tawanna Arango MD Attending Provider Physician Referring Provider Specialty: Urology Address: [address] [place] [address], [id number] Email: Physical Therapy Initial Evaluation PT-OP-A Visit Information Start: 09/27/23 08:47 Freq: Status: Active Protocol: Document 09/27/23 09:44 [facility] (Rec: 09/27/23 09:45 [facility] [id number]) Out-Patient Physical Therapy Visit Information Visit Information Visit Type Initial Evaluation Visit Start Time 09:45 Visit Stop Time 10:30 Visit Number 1 Evaluation Information Evaluation Date 09/27/23 PT-OP-B Current Condition Start: 09/27/23 08:47 Freq: Status: Active Protocol: Document 09/27/23 09:45 [facility] (Rec: 09/27/23 08:53 [facility] [id number]) Current Condition History of Current Condition Onset Date worse in the past year Current Complaints urinary urgency with leakage History of Current Condition Mr Murphy has a history of UTI and BPH/LUTS. He has a history of TURP years ago. Recently he was diagnosed with E colo UTI on 07/28/2003. He complaints of significant hesitancy and weak urinary stream. He reports urinary incontinence without sensary awareness. He will be scheduled for aquablation and is referred to PT for pelvic floor strengthening exercises prior to his procedure. He reports urinary urgency and nocturia 1 time per night. He voids approx 4 times per day. He reports leakage 4-5 times per week. He is wearing a pad for protection daily. He at times will experience urgency after sitting. He feels the urge when he is in the recliner and getting out of the recliner. Other past medical hx includes lumbar fusion, umbilical hernia repar, appendectomy, rotator cuff repair B, hx of open heart surgery, hx of cholecstectomy. Treatment Goals Patient/Caregiver Goals pts goals are to reduce urinary urgency and leakage PT-OP-C Subjective Start: 09/27/23 08:47 Freq: Status: Active Protocol: Document 09/27/23 09:45 [facility] (Rec: 09/29/23 11:30 [facility] [id number]) Patient Questionnaires Pelvic Pain and Urgency/Frequency Patient Symptom Scale Pelvic Pain Score 1 PT-OP-I Pelvic Floor Start: 09/27/23 08:47 Freq: Status: Active Protocol: Document 09/27/23 09:45 [facility] (Rec: 09/29/23 11:30 [facility] [id number]) Pelvic Floor Assessment Urine Urinary Symptoms Urge Sensation Leakage Size Large Leakage Cause Urge Other Leakage Causes leakage with strong urge to void Voiding Frequency 4 Nocturia 1 Urine Pad Type Maxi Pad Contraction Ability Voluntary Contraction Weak Voluntary Relaxation Weak Muscle Endurance (Seconds) 5 Comments Pelvic Floor Comments external assessment done of the pelvic floor and Ivan has difficulty with endurance holds of the pelvic floor as 5 seconds is his max for holding a pelvic floor contraction PT-OP-M Strength Start: 09/27/23 08:47 Freq: Status: Active Protocol: Document 09/27/23 09:45 [facility] (Rec: 09/29/23 11:30 [facility] [id number]) Trunk Strength Trunk Manual Muscle Testing Testing Position Supine Flexion 3 Fair Core Stabilization decreased overall core stabilization of the transverse abdominal muscles PT-OP-Q Treatments Start: 09/27/23 08:47 Freq: Status: Active Protocol: Document 09/27/23 09:45 [facility] (Rec: 09/27/23 16:33 [facility] [id number]) Therapeutic Exercises Supine Exercises ball squeeze with pelvic floor contraction Reps/Minutes x 10 reps holding 5 sec each pelvic floor 5 sec holds Reps/Minutes x 10 reps hold x 5 seconds rest x 10 Sitting Exercises seated pelvic floor lifts Reps/Minutes x 10 reps holding 5 sec Self-Care/Home Management Treatment Education Patient Education Home Exercise Program Other Education pt was educated in the urge deference technique and bladder retraining PT-OP-T Assessment and Plan Start: 09/27/23 08:47 Freq: Status: Active Protocol: Document 09/27/23 09:45 [facility] (Rec: 09/27/23 16:33 [facility] [id number]) Physical Therapy Assessment Rehab Potential Rehabilitation Potential Good Evaluation Complexity Number of Personal Factors/Comorbidities 0 Number of Body Systems Impaired 1-2 Clinical Presentation at Evaluation Stable Impairments Impairments Activity Tolerance,Functional Activities,Soft Tissue Mobility,Strength,Tone Other Impairments urinary urgency and incontinence Goals 3 Impairment Patrick lacks a home program for pelvic floor strenghening Lifter Goal (LTG) Ivan is independent with a HEP for pelvic floor strengh and endurance training. LTG Duration 8 weeks 2 Impairment urinary urgency and leakage after pt has been sitting in his recliner and then goes to stand up Short Term Goal (STG) Ivan is educated on the urge deference technique to help him reduce bladder spasms and improve his ability to make it to the bathroom without leakage after he has been sitting STG Duration 5 weeks 1 Impairment Decreased endurance of the pelvic floor Short Term Goal (STG) Ivan is able to sustain a pelvic floor contraction in supine x 10 seconds STG Duration 4 weeks Correction Goal (LTG) Patrick is able to sustain a pelvic floor contraction in standing x 5 seconds LTG Duration 8 weeks Assessment Summary Assessment Ivan is a 88 year old male referred to PT for pelvic floor strengthening prior to his aquablation procedure. He has a history of recurrent bladder outlet obstruction and recent history of UTI. His symptoms include urgency and urge incontinence symptoms. With exam today he was able to contract the levator ani however he lacks the ability to sustain a pelvic floor contraction more than 5 seconds. He was educated on a home program for pelvic floor strengthening as well as educated on urge deference technique and bladder retraining. Ivan is a good candidate for pelvic floor PT Physical Therapy Plan Frequency and Duration Frequency of Treatment 1x/Week Duration of treatment (weeks) 8 Plan of Care Start Date 09/27/23 Plan of Care End Date 11/22/23 Therapeutic Interventions Therapeutic Interventions Home Exercise Program, Neuromuscular Re-education, Patient/Caregiver Education, Self-Care/Home Management, Therapeutic Exercises Modalities Biofeedback Next Visit Focus/Plan Next Note Type Treatment Note Next Visit Plan Review pelvic floor exercises given today, review urge deference technique and bladder retraining, progress pelvic floor exercises
--- NOTE | 2023-10-04 16:55 | PT.OTN ---
Current Diagnoses Other obstructive and reflux uropathy (10/04/23) Incontinence without sensory awareness (10/04/23) Benign prostatic hyperplasia with lower urinary tract symptoms (10/04/23) Physical Therapy Treatment Note PT-OP-A Visit Information Start: 09/27/23 08:47 Freq: Status: Active Protocol: Document 10/04/23 09:48 [facility] (Rec: 10/04/23 10:26 [facility] [id number]) Out-Patient Physical Therapy Visit Information Visit Information Visit Type Treatment Note Visit Start Time 09:50 Visit Stop Time 10:30 Visit Number 2 PT-OP-B Current Condition Start: 09/27/23 08:47 Freq: Status: Active Protocol: Document 09/27/23 09:45 [facility] (Rec: 09/27/23 08:53 [facility] [id number]) Current Condition History of Current Condition Onset Date worse in the past year Current Complaints urinary urgency with leakage History of Current Condition Mr Murphy has a history of UTI and BPH/LUTS. He has a history of TURP years ago. Recently he was diagnosed with E colo UTI on 07/28/2003. He complaints of significant hesitancy and weak urinary stream. He reports urinary incontinence without sensary awareness. He will be scheduled for aquablation and is referred to PT for pelvic floor strengthening exercises prior to his procedure. He reports urinary urgency and nocturia 1 time per night. He voids approx 4 times per day. He reports leakage 4-5 times per week. He is wearing a pad for protection daily. He at times will experience urgency after sitting. He feels the urge when he is in the recliner and getting out of the recliner. Other past medical hx includes lumbar fusion, umbilical hernia repar, appendectomy, rotator cuff repair B, hx of open heart surgery, hx of cholecstectomy. Treatment Goals Patient/Caregiver Goals pts goals are to reduce urinary urgency and leakage PT-OP-C Subjective Start: 09/27/23 08:47 Freq: Status: Active Protocol: Document 10/04/23 09:48 [facility] (Rec: 10/04/23 10:26 [facility] [id number]) OP-PT Subjective Patient Comments Patient Comments pt notes he has been doing his exercises, he is not sure of when his procedure will be scheduled but he is leaving to move to [place] in november so he will stop by urology today to check on scheduling PT-OP-I Pelvic Floor Start: 09/27/23 08:47 Freq: Status: Active Protocol: Document 09/27/23 09:45 [facility] (Rec: 09/29/23 11:30 [facility] [id number]) Pelvic Floor Assessment Urine Urinary Symptoms Urge Sensation Leakage Size Large Leakage Cause Urge Other Leakage Causes leakage with strong urge to void Voiding Frequency 4 Nocturia 1 Urine Pad Type Maxi Pad Contraction Ability Voluntary Contraction Weak Voluntary Relaxation Weak Muscle Endurance (Seconds) 5 Comments Pelvic Floor Comments external assessment done of the pelvic floor and Ivan has difficulty with endurance holds of the pelvic floor as 5 seconds is his max for holding a pelvic floor contraction PT-OP-M Strength Start: 09/27/23 08:47 Freq: Status: Active Protocol: Document 09/27/23 09:45 [facility] (Rec: 09/29/23 11:30 [facility] [id number]) Trunk Strength Trunk Manual Muscle Testing Testing Position Supine Flexion 3 Fair Core Stabilization decreased overall core stabilization of the transverse abdominal muscles PT-OP-Q Treatments Start: 09/27/23 08:47 Freq: Status: Active Protocol: Document 10/04/23 09:48 [facility] (Rec: 10/04/23 10:26 [facility] [id number]) Therapeutic Exercises Supine Exercises hip ER in supine Equipment Used level 3 theraband Reps/Minutes x 20 reps quick pelvic floor contractions Reps/Minutes x 10 reps holding 2 sec on a 2 ball squeeze with pelvic floor contraction Reps/Minutes x 10 reps holding 10 seconds pelvic floor 5 sec holds Reps/Minutes x 10 reps 10 sec on 10 sec off Sitting Exercises seated pelvic floor lifts Reps/Minutes x 10 reps holding 5 sec PT-OP-T Assessment and Plan Start: 09/27/23 08:47 Freq: Status: Active Protocol: Document 10/04/23 09:48 [facility] (Rec: 10/04/23 10:26 [facility] [id number]) Physical Therapy Assessment Assessment Summary Assessment Ivan was able to increase to 10 sec holds with his pelvic floor exercises. I added in lateral hip ER to his HEP and he is tolerating his exercises well Physical Therapy Plan Frequency and Duration Frequency of Treatment 1x/Week Duration of treatment (weeks) 8 Plan of Care Start Date 09/27/23 Plan of Care End Date 11/22/23 Therapeutic Interventions Therapeutic Interventions Home Exercise Program, Neuromuscular Re-education, Patient/Caregiver Education, Self-Care/Home Management, Therapeutic Exercises Modalities Biofeedback Next Visit Focus/Plan Next Note Type Treatment Note Next Visit Plan Review pelvic floor exercises given today, review urge deference technique and bladder retraining, progress pelvic floor exercises
--- NOTE | 2023-10-11 17:17 | PT.OTN ---
Current Diagnoses Other obstructive and reflux uropathy (10/11/23) Incontinence without sensory awareness (10/11/23) Benign prostatic hyperplasia with lower urinary tract symptoms (10/11/23) Physical Therapy Treatment Note PT-OP-A Visit Information Start: 09/27/23 08:47 Freq: Status: Active Protocol: Document 10/11/23 09:52 [facility] (Rec: 10/11/23 10:29 [facility] [id number]) Out-Patient Physical Therapy Visit Information Visit Information Visit Type Treatment Note Visit Start Time 09:50 Visit Stop Time 10:30 Visit Number 40 PT-OP-B Current Condition Start: 09/27/23 08:47 Freq: Status: Active Protocol: Document 09/27/23 09:45 [facility] (Rec: 09/27/23 08:53 [facility] [id number]) Current Condition History of Current Condition Onset Date worse in the past year Current Complaints urinary urgency with leakage History of Current Condition Mr Murphy has a history of UTI and BPH/LUTS. He has a history of TURP years ago. Recently he was diagnosed with E colo UTI on 07/28/2003. He complaints of significant hesitancy and weak urinary stream. He reports urinary incontinence without sensary awareness. He will be scheduled for aquablation and is referred to PT for pelvic floor strengthening exercises prior to his procedure. He reports urinary urgency and nocturia 1 time per night. He voids approx 4 times per day. He reports leakage 4-5 times per week. He is wearing a pad for protection daily. He at times will experience urgency after sitting. He feels the urge when he is in the recliner and getting out of the recliner. Other past medical hx includes lumbar fusion, umbilical hernia repar, appendectomy, rotator cuff repair B, hx of open heart surgery, hx of cholecstectomy. Treatment Goals Patient/Caregiver Goals pts goals are to reduce urinary urgency and leakage PT-OP-C Subjective Start: 09/27/23 08:47 Freq: Status: Active Protocol: Document 10/11/23 09:52 [facility] (Rec: 10/11/23 10:29 [facility] [id number]) OP-PT Subjective Patient Comments Patient Comments pt notes his procedure has not been scheduled yet, he hasn't done a lot of exercises this week as he has a new grandbaby Ivan notes he has been doing really well and is not having any symptoms with his bladder . He is sleeping through the night and feels as if he is emptying all the way. PT-OP-I Pelvic Floor Start: 09/27/23 08:47 Freq: Status: Active Protocol: Document 09/27/23 09:45 [facility] (Rec: 09/29/23 11:30 [facility] [id number]) Pelvic Floor Assessment Urine Urinary Symptoms Urge Sensation Leakage Size Large Leakage Cause Urge Other Leakage Causes leakage with strong urge to void Voiding Frequency 4 Nocturia 1 Urine Pad Type Maxi Pad Contraction Ability Voluntary Contraction Weak Voluntary Relaxation Weak Muscle Endurance (Seconds) 5 Comments Pelvic Floor Comments external assessment done of the pelvic floor and Ivan has difficulty with endurance holds of the pelvic floor as 5 seconds is his max for holding a pelvic floor contraction PT-OP-M Strength Start: 09/27/23 08:47 Freq: Status: Active Protocol: Document 09/27/23 09:45 [facility] (Rec: 09/29/23 11:30 [facility] [id number]) Trunk Strength Trunk Manual Muscle Testing Testing Position Supine Flexion 3 Fair Core Stabilization decreased overall core stabilization of the transverse abdominal muscles PT-OP-Q Treatments Start: 09/27/23 08:47 Freq: Status: Active Protocol: Document 10/11/23 09:52 [facility] (Rec: 10/11/23 10:29 [facility] [id number]) Therapeutic Exercises Supine Exercises hip ER in supine Equipment Used level 3 theraband Reps/Minutes x 20 reps quick pelvic floor contractions Reps/Minutes x 10 reps holding 2 sec on a 2 ball squeeze with pelvic floor contraction Reps/Minutes x 10 reps holding 10 seconds pelvic floor 5 sec holds Reps/Minutes x 10 reps 10 sec on 10 sec off Self-Care/Home Management Treatment Education Patient Education Home Exercise Program Other Education urge deference technique and bladder retraining were reviewed pt's HEP was reviewed PT-OP-T Assessment and Plan Start: 09/27/23 08:47 Freq: Status: Active Protocol: Document 10/11/23 09:52 [facility] (Rec: 10/11/23 10:29 [facility] [id number]) Physical Therapy Assessment Goals 3 Impairment Patrick lacks a home program for pelvic floor strenghening Assisted Goal (LTG) Ivan is independent with a HEP for pelvic floor strengh and endurance training. GOAL MET LTG Duration 8 weeks 2 Impairment urinary urgency and leakage after pt has been sitting in his recliner and then goes to stand up Short Term Goal (STG) Ivan is educated on the urge deference technique to help him reduce bladder spasms and improve his ability to make it to the bathroom without leakage after he has been sitting Ivan reports reduced complaints of leakage at this time STG Duration 5 weeks 1 Impairment Decreased endurance of the pelvic floor Short Term Goal (STG) Ivan is able to sustain a pelvic floor contraction in supine x 10 seconds GOAL MET STG Duration 4 weeks [employer]eter[employer] Leader Goal (LTG) Patrick is able to sustain a pelvic floor contraction in standing x 5 seconds not yet met LTG Duration 8 weeks Assessment Summary Assessment Ivan is independent with his home pelvic floor program at this time. He will follow up with his MD regarding his appointment for acquablation for his urethra. Physical Therapy Plan Discharge Physical Therapy Discharge Reasons Goals Met
== END 2023-10-12 10:38 | disposition home or self-care (01) ==
LOC: PHYS 09:45
PROVIDERS: Family Provider Family Medicine; PCP Family Medicine; Referring Provider Specialist; Visit Provider Specialist
DX: N39.42 Incontinence without sensory awareness (principal); N40.1 Benign prostatic hyperplasia with lower urinary tract symptoms; N13.8 Other obstructive and reflux uropathy
CPT/HCPCS: 97110; 97161; 97535

== ENCOUNTER 2023-11-07 07:23 | Day surgery (SDC) | payer MEDICARE, OTHER, SELFPAY ==
[2023-11-07] VITALS (19 sets, daily range): BP systolic 86–127; BP diastolic 47–95; PULSE 67–115; RESP 13–22; TEMP 35.4–36.4; O2SAT 90–100; BMI 26.2; BMI 27.3
--- NOTE | 2023-11-07 | PATH_ITS ---
[facility] Accession Number: [id number] No. of containers..01 Tissue . 01 Material submitted: . prostate - PROSTATE . 01 Diagnosis: PROSTATE, TRANSURETHRAL PROSTATE CHIPS RESECTION: Benign prostatic parenchyma, weight: 4 grams, with nodular stromal/glandular hyperplasia, and mild chronic, focally active inflammation with reactive changes. Negative for high-grade prostatic intraepithelial neoplasia and invasive malignancy. Benign urothelial mucosa also present. MRV 11/09/2023 1546 Local . 01 Electronically signed: . Pamela Judd MD, Pathologist NPI- [id number] . 01 Gross description: . Received in formalin with two identifiers and prostate, are multiple saunders, rubbery, soft tissue fragments weighing 4 grams and aggregating to 5.2 x 4.3 x 0.7 cm. No distinct lesions are identified. The specimen is submitted entirely in cassettes [id number]. ([id number]) /MRV 11/08/2023 1216 Local . 01 Pathologist provided ICD-10: N32.0, Z87.440 . 01 CPT . 725944 Specimen Comment: A courtesy copy of this report has been sent to [phone] Performed at: 01 [facility] [address] [place] [address] [address] [facility], [place], [place] [id number] MD Braxton Kellogg MD Phone: [phone]
[2023-11-07] MEDS: VANCOMYCIN 1,000 MG/200 ML PIGGYBACK 200 MG IV (08:16)
[2023-11-07] MEDS: LACTATED RINGERS 1,000 ML 42 ML IV ×2 (08:21→10:40)
--- NOTE | 2023-11-07 08:30 | PM.PREOP ---
Pre-operative Note Interval Note History & Physical reviewed/Exam performed by Physician: Yes Changes to H&P: No
--- NOTE | 2023-11-07 08:49 | SUR.OPER ---
Lithotomy on padded OR bed, head on pillow, arms secured on padded arm boards at <90 degrees abduction. Legs secured in padded yellow fins stirrups.
[2023-11-07] MEDS: TRANEXAMIC ACID 1,000 MG in SODIUM CHLORIDE 0.9% 100 ML 200 MG IV (09:20)
[2023-11-07] MEDS: GENTAMICIN 450 MG in SODIUM CHLORIDE 0.9% 100 ML 111.25 MG IV (09:20)
--- NOTE | 2023-11-07 10:26 | P.OP_ITS ---
Operative Date/Time/Diagnoses Date of procedure: 11/07/23 Time of procedure: 10:15 Pre-op diagnosis: 1. Bladder outlet obstruction. 2. History of UTI. Post-op diagnosis: same Procedure & Clinicians Procedure: 1. Transurethral resection of prostate (greater than 1 year status post TURP). Same procedure as scheduled: Yes Indications: 1. Bladder outlet obstruction due to prostate. 2. History of UTI. Surgeon: Tawanna Arango Click Yes if Unassisted: Yes Anesthesia Type: General Operative Notes Findings: 1. Urethra-distal shaft hypospadias. Remainder of urethra of normal caliber without annular stricture or lesion. 2. External sphincter-coapted with normal overlying urothelium and vascularity. 3. Prostate-4 cm length with left lateral obstructing lobe extending well pass the midline. The left lateral lobe does not appear to have been previously resected. Mild right lateral regrowth. 4. Bladder-severe trabeculation and early cellule formation. Normal ureteral orifices bilaterally with clear efflux. Closure Type: not applicable Specimen(s): none sent (Prostate chips) Applied: catheter ([address] hematuria catheter to normal saline continuous bladder irrigation.) Estimated Blood Loss (mL): 2 Blood products transfused: none Procedure in detail: The patient was positioned supine was administered general anesthesia. He was then repositioned in semi lithotomy in the lower abdomen, genitalia, and groin were then prepped and draped in sterile fashion. The Cherrie sounds were used to calibrate in slightly dilated the [place] hypospadiac meatus. The resectoscope was then advanced to lower urinary tract under direct visualization with the findings as described above. Resectoscope was then fitted with resecting loop. A TUR incision was made at a proximally 1 position from bladder neck to just proximal to the verumontanum. Resection of the lateral lobe was continued from anterior toward posterior between the bladder neck and site just proximal to the verumontanum. There was considerable on resected median lobe tissue on the left as well. This was resected as well. Resection was confined within the surgical capsule. The elevated ridge line horizontally at the bladder neck was then resected. Finally, limited right lateral lobe resection was conducted from bladder neck to a point just proximal of the verumontanum. Distal, lateral kissing apical tissue was intentionally left on resected just proximal to the verumontanum. Hemostasis was attained readily with the cautery mode of the resecting loop. The Allocadia evacuator was then used to clear the bladder of retained chips. Reexamination of the bladder revealed 1 additional chips which was removed manually with the loop. The bladder was then partially filled and the resectoscope was removed. A 22 [place], 3 way hematuria catheter was then inserted in to the bladder over a wire catheter guide. The balloon was then inflated to 30 cc and the balloon positioned at the bladder neck. The catheter was then irrigated with a catheter tip syringe. There was no residual chips or evidence of bleeding or clot. Three-way in port was connected to gravity irrigation in the outflow was connected to gravity drainage. Prostate chips specimen was collected and submitted to pathology for routine gross and microscopic examination. The patient was then repositioned in supine, was awakened, then transport to recovery in stable condition. Complications: none Post-operative Condition: stable Disposition: PACU Plan for aftercare: Admit outpatient with the bed acute care.
--- NOTE | 2023-11-07 10:57 | SUR.PHASEI ---
Dr. Ledesma notified by phone of CBG [phone]. No new orders.
--- NOTE | 2023-11-07 11:27 | SUR.PHASEI ---
Patient having runs of irregular heart beats. Strips printed and given to Dr. Ledesma. Patient denied chest pain or nausea. No new orders.
--- NOTE | 2023-11-07 12:18 | SUR.PHASEI ---
Report called to Estefani Anaya.
--- NOTE | 2023-11-07 12:45 | SUR.PHASEI ---
Patient transferred to the floor with his belongings bag. IV and camarena patent. He was able to transfer himself to the bed without difficulty. Report given to
[2023-11-07] MEDS: BRIMONIDINE TIMOLOL 1 EACH EYE-BOTH (20:31)
--- NOTE | 2023-11-07 23:08 | PC.NURSE ---
Patient is alert and oriented. APACHE with bilateral hearing aids. Breath sounds CTA with RA sat of 96%; on continuous oximetry. HR irregular with rate of 111. BP low at 98/73 and is asymptomatic and reports his BP generally runs low at home with SBP in low 100's. Denies nausea. BT present but has not yet passed any flatus. Indwelling catheter is patent with CBI infusing and urine being grade 1 in color. Is able to reposition himself in bed. Not yet out of bed so gait not assessed. States he has fallen in past 3 months when his knee gave out but reports that has only happened a couple of times and denies use of assistive device at home. Denies any pain or discomfort. Wearing bilateral calf SCD's. Fall risk score is high and bed alarm is activated.
[2023-11-08 04:32] VITALS: BP 114/65; PULSE 109; RESP 16; TEMP 36.6; O2SAT 96
[2023-11-08 08:09] VITALS: BP 116/66; PULSE 109
[2023-11-08] MEDS: ATORVASTATIN 20 MG TABLET 80 MG PO (08:09)
[2023-11-08] MEDS: TAMSULOSIN 0.4 MG CAPSULE PO (08:09)
[2023-11-08] MEDS: LOSARTAN 50 MG TABLET PO (08:09)
[2023-11-08] MEDS: hydroCHLOROthiazide 25 MG TABLET PO (08:10)
[2023-11-08] MEDS: Empagliflozin 10 mg tablet 10 EACH PO (08:10)
[2023-11-08] MEDS: FINASTERIDE 5 MG TABLET PO (08:10)
[2023-11-08] MEDS: FERROUS SULFATE 325 MG TABLET PO (08:10)
[2023-11-08] MEDS: ENOXAPARIN 40 MG/0.4 ML SYRINGE SUBCUT (08:10)
[2023-11-08] MEDS: SODIUM CHLORIDE 0.9% FLUSH 10 ML IV (08:10)
[2023-11-08] MEDS: BRIMONIDINE TIMOLOL 1 EACH EYE-BOTH (08:11)
--- NOTE | 2023-11-08 10:54 | CM.DANOTE ---
Initial DCP Assessment Note Reviewed EMR and team rounds for pt's medical status and updates. Met with pt at bedside to introduce self and role. Pt was found up in the recliner, appearing comfortable and expressing readiness to go home once he's medically discharged, anticipating early afternoon later today. Spouse and dtr will transport him. Payor: Medicare Attending: Dr. Valero Pt is a 88 year-old M post-op day 1 from his planned transurethral resection of prostate. He has a hx of worsening bladder outlet obstruction, and a remote hx of prior prostate resection. He is recovering well, denies the need for any additional in-home support or community resources at this time. DCP will continue to follow until he discharges for any further evolving needs. Discharge Planning/Care Management CM Discharge Assessment Start: 11/08/23 10:53 Freq: Status: Active Protocol: Document 11/08/23 10:53 DPL (Rec: 11/08/23 10:54 DPL [id number]) Discharge Planning Assessment Assigned Amphibian Crewmember HEIDI Vizcaino Advance Directives? Yes Advance Directives on File No History Provided By Patient,Medical Record Has Patient been admitted in last 30 No days? Prior Living Arrangements House Household Members spouse Type of transporation used prior to Drives own vehicle admit Independent with ADL's Yes Is patient alert and oriented? Yes Caregiver for Another No DME Already Rented / Owned FWW / Walker Comment No anticipated home d/c needs identified at this time. Barriers to Discharge No Discharge Plan Home Transportation Arrangement Spouse and dtr Referrals Initiated None needed Whiteboard Updated in Patient Room with Yes name and ext. # of Amphibian Crewmember Review Status In Process Please Provide Date Initial DC 11/08/23 Assessment Was Performed
--- NOTE | 2023-11-08 12:12 | PM.DS.1 ---
History of Present Illness History of Present Illness Date Patient Seen: 11/08/23 Time Patient Seen: 07:30 Chief complaint: Transurethral Resection Prostate Narrative: The patient is an 88-year-old male admitted on 11/08/2023 for scheduled Transurethral resection prostate for history of severe lower urinary tract obstructive symptoms and history of UTI. Discharge Providers Provider Date of admission: 11/07/2023 Discharge Date: 11/08/23 Primary care physician: Sabas Rivera MD Discharge provider: Tawanna Arango MD Summary Hospital Course Discharge Diagnosis: 1. Bladder outlet obstruction. 2. History of UTI. Hospital Course: The patient was admitted on 11/07/2023 and underwent uncomplicated Transurethral resection of the prostate under general anesthesia. His postoperative recovery was uneventful. He tolerated general diet the 1st meal postsurgical recovery. He tolerated general diet thereafter without difficulty. On the morning of the 1st postoperative day he was able to transfer and ambulate independently. Frias catheter was removed at a proximally 8:00 a.m. the patient subsequently voided without difficulty. Postvoid residual volumes ranged from 173-200 cc, with voided volumes of 270 to 325 cc. The color of outflow when catheter was then was straw and clear. After catheter removal. There was noted purvi to a light garcia coloration without clots with his voided specimens. Exam Vital Signs (past 8 hours): - 11/08/23 04:32 11/08/23 04:32 11/08/23 08:09 Temperature 97.9 F Pulse Rate 109 H 109 H Respiratory Rate 16 Blood Pressure 114/65 116/66 Pulse Oximetry 96 Oxygen Flow Rate 0 Oxygen Delivery Method Room Air Oxygen Flow Rate 0 Narrative Exam Narrative: He is sitting upright in bed, talkative, alert and oriented in his in no distress. Abdomen is without tenderness or rebound. 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 Glucosuria Family history of prostate cancer BPH w urinary obs/LUTS Radiculopathy, lumbosacral region Facet arthropathy, lumbar Sleep apnea in adult Myocardial infarct Irregular heartbeat Heart murmur HTN (hypertension) HLD (hyperlipidemia) Cellulitis of left hand Sleep apnea with use of continuous positive airway pressure (CPAP) Chronic anticoagulation Surgical History S/P lumbar spinal fusion Status post epidural steroid injection (03/01/19) History of arthroplasty of right knee Hx of appendectomy Hx of umbilical hernia repair History of repair of right rotator cuff History of repair of left rotator cuff Hx of bilateral cataract extraction (~2017) History of open heart surgery Hx of cholecystectomy History of back surgery (~2009) Family History Mother Heart disease Diabetes mellitus Sister Cancer Brother Cancer Social History marital status: household members: spouse occupational status: previously employed Smoking Status: Former smoker alcohol intake: never substance use type: does not use Discharge Assessment & Plan Assessment and Plan Assessment: 1. Stable postoperative day 1 status post Transurethral resection of the prostate. 2. Successful voiding trial following catheter removal on postoperative morning 1 status post Transurethral resection of prostate. 3. Pathology pending. 4. History of chronic warfarin anticoagulation therapy. Plan of Treatment: 1. Discharge to home today. 2. Rx Lovenox 40 mg subcutaneous q.day x5 days (end 11/13/2023). 3. Hold warfarin re-initiation until the evening of 11/12/2023. 4. Follow-up in Urology Clinic in approximately 4 weeks with PVR in clinical update. 5. Follow-up surgical pathology report when final. Discharge Plan Discharge orders & Medications Prescriptions: No Action Aero Chamber 1 unit inhalation PRN PRN (Reason: Use with inhaler) Qty: 0 warfarin [Coumadin] 5 MG tablet 5 mg PO 4XW Qty: 0 Rx Instructions: alternates 4 and 5 mg every other day. nitroglycerin [Nitrostat] 0.4 MG tablet, sublingual 0.4 mg Sublingual PRN PRN (Reason: Chest Pain) Qty: 0 telmisartan [Micardis] 40 MG tablet 40 mg PO QDAY Qty: 0 rosuvastatin [Crestor] 40 MG tablet 40 mg PO QDAY Qty: 0 Ocuvite Lutein and Zeaxanthin 1 EACH capsule 1 cap PO DAILY Qty: 0 warfarin 2 mg tablet 2 mg PO DAILY Rx Instructions: alternates 4 and 5 mg every other day. hydrochlorothiazide 25 mg tablet 25 mg PO DAILY Combigan 0.2-0.5 % drops 1 drp EYE-BOTH BID albuterol sulfate [ProAir HFA] 90 mcg/actuation HFA aerosol inhaler 2 puff inhalation Q4-6H PRN (Reason: Shortness Of Breath) finasteride 5 mg tablet 5 mg PO DAILY Qty: 90 3RF cyanocobalamin (vitamin B-12) 1,000 mcg/15 mL liquid 1,000 mcg PO DAILY Patient Comments: Pt is not longer taking med cyclobenzaprine 10 mg tablet 10 mg PO TID PRN (Reason: Muscle Spasm) empagliflozin 10 mg tablet 10 mg PO DAILY ferrous gluconate 324 mg (37.5 mg iron) tablet 324 mg PO DAILY tamsulosin 0.4 mg capsule 0.4 mg PO DAILY Follow up/Referrals: Sabas Rivera MD [Primary Care Provider] - Discharge Data Primary Care Provider: Sabas Rivera Attending Provider: Tawanna Arango VTE Deep Vein Thrombosis/Pulmonary Embolism Present on Admission: No
--- NOTE | 2023-11-08 13:32 | PC.NURSE ---
IV removed, patient belongings packed up. Discussed follow up, worsening symptoms, diet, and activity tolerance. no further questions. Wheeled pt out to private vehicle via w/c with family member.
== END 2023-11-08 12:54 | disposition home or self-care (01) ==
LOC: OR 07:25 → AC 12:45
PROVIDERS: Family Provider Family Medicine; PCP Family Medicine; Referring Provider Specialist; Visit Provider Specialist
PROC: 0VT08ZZ Resection of Prostate, Via Natural or Artificial Opening Endoscopic (ICD-10-PCS; CPT 52601; principal; 2023-11-07 09:00)
DX: N40.1 Benign prostatic hyperplasia with lower urinary tract symptoms (principal); N13.9 Obstructive and reflux uropathy, unspecified; I10 Essential (primary) hypertension; Z87.440 Personal history of urinary (tract) infections; G47.33 Obstructive sleep apnea (adult) (pediatric); I25.2 Old myocardial infarction; Z79.01 Long term (current) use of anticoagulants
CPT/HCPCS: 52601; 82962; 85610; 93005; J1650; J2250; J2704; J3010

== ENCOUNTER → 2023-11-15 11:21 | Outpatient (CLI) | payer MEDICARE, OTHER, SELFPAY ==
[2023-11-07 12:46] VITALS: BMI 27.3
[2023-11-15 15:07] LABS: Appearance Urine UA CLEAR; Bilirubin Urine UA NEGATIVE (NEGATIVE); Color Urine UA YELLOW; Glucose Urine UA 3+ g/dL (Negative); Ketones Urine UA NEGATIVE (NEGATIVE); Leukocyte Esterase Urine UA 1+ (NEGATIVE); Nitrite Urine UA NEGATIVE (Negative); Occult Blood Urine UA 3+ (Negative); Protein Urine UA TRACE (Negative); Urobilinogen Urine UA 0.2 E.U./dL (0.2)
[2023-11-15 15:17] LABS: Bacteria Urine Occasional (0-1); Culture Indicated Urine Cult Not Indicated; RBC Urine 30-100/HPF (0-5/HPF); Squamous Epithelial Cell Urine 5-10 /HPF (0-5/HPF); Urine Volume 10mL (spun); WBC Urine 10-30/HPF (0-5/HPF)
== END ==
PROVIDERS: Family Provider Family Medicine; PCP Family Medicine; Visit Provider Specialist
DX: N39.42 Incontinence without sensory awareness (principal); Z87.440 Personal history of urinary (tract) infections
CPT/HCPCS: 81001; 81002

== ENCOUNTER → 2023-12-12 10:44 | Outpatient (CLI) | payer MEDICARE, OTHER, SELFPAY ==
[2023-11-07 12:46] VITALS: BMI 27.3
== END ==
PROVIDERS: Family Provider Family Medicine; PCP Family Medicine; Visit Provider Specialist
DX: Z87.440 Personal history of urinary (tract) infections (principal)
CPT/HCPCS: 87086